=== PATIENT | female | born 1960 | race Caucasian/White ===

== ENCOUNTER 2020-07-15 10:48 | Inpatient (IN) ==
--- NOTE | 2020-07-15 11:05 | DR.SOBA ---
HPI Time Seen Time Seen by Provider: 07/15/20 11:03 Primary Care Physician Primary Care Physician: CATHY CARR HPI Comment HPI Comment: reports started having sob two days ago and developed chest "heaviness" this morning with acute worsening of breathing; believes it's due to new arthritis medicine she's been on for the past week which she threw away and cannot remember the name of; she thinks it has aspirin in it; she tires easily and denies fever, chills, cough, abd pain, n/v/d; no previous lung problems but was hospitalized for renal failure recently and has had "fluid on lungs". Complaints Chief Complaint:: PATIENT CAME TO ER REPORTS BEING SOB ONSET FRIDAY. COVID-19 Coronavirus risk:travel/contact w/high risk person: No Has patient experienced Coronavirus symptoms: Yes Coronavirus symptoms experienced: Shortness of Breath Source History Provided: Patient Mode of Arrival Mode of Arrival: Wheelchair Timing Onset of Chief Complaint: 07/13/20 PMH PMH Past Medical History: Yes Past Medical History: Diabetes and Hyperthyroidism Past Surgical History: Yes Family History History of Family Medical Conditions: Yes Family Medical History: Hypertension Social History Do you use any recreational Drugs:: No Travel Risk Coronavirus risk:travel/contact w/high risk person: No Has patient experienced Coronavirus symptoms: Yes Coronavirus symptoms experienced: Shortness of Breath Infectious screening Have you traveled outside the country in the last 6 months?: No Isolation: Standard ROS Review of Systems Eyes: No Symptoms Reported ENTM: No Symptoms Reported Respiratoy: See HPI Gastrointestinal/Abdominal: No Symptoms Reported Genitourinary: No Symptoms Reported Neurological: No Symptoms Reported Integumentary: No Symptoms Reported Hematologic/Lymphatic: No Symptoms Reported Endocrine: No Symptoms Reported Psychiatric: No Symptoms Reported PE Vital Signs Vitals: Temperature 98.4 F Pulse Rate 89 Respiratory Rate 24 Blood Pressure [Right Arm] 126/64 Blood Pressure 135/72 O2 Sat by Pulse Oximetry 97 General Limitations: No Limitations General Appearance: Alert and In No Apparent Distress Head Head Exam: Normal Inspection Eyes Eye exam: Normal Appearance Neck Neck Exam: Normal Inspection Chest Chest Inspection: Normal Inspection Respiratory Respiratory Exam: Normal Lung Sounds Bilat Respiratory Exam: Bilateral: Clear to Auscultation and Bilateral: Decreased Breath Sounds Cardiovascular Cardiovascular Exam: Normal Rhythm and Tachycardia Abdominal Exam Abdominal Exam: Normal Inspection, Normal Bowel Sounds and Soft Extremities Extremities Exam: Normal Inspection and Edema (2+ bilateral shins) Back Back Exam: Normal Inspection Neurologic Neurological Exam: Alert and Oriented X3 Psychiatric Psychiatric Exam: Normal Affect and Normal Mood Skin Skin Exam: Warm, Dry, Intact and Normal Color MDM Additional Information Obtained Additional Information Obtained From: Old Records Differential Diagnosis Differential Diagnosis: Bronchitis, CHF, COPD, Mycardial Infarction, Pneumonia, Pulmonary embolism, Respiratory Failure and Respiratory Insufficiency COURSE Treatment Treatment: pt has blown several lines; Dr Pate consulted for central line central line placed to rt chest w/o complication Reevaluation 1st: Improved (putting out a lot of urine and has started feeling better) Consultation Call Returned: 15:46 (Dr Oliveros accepts admission) ROR Labs Reviewed Laboratory Results Reviewed?: Yes Result Diagrams: 07/15/20 10:51 07/15/20 10:51 Laboratory: WBC 18.4 X10^3/uL (3.6-10.0) H 07/15/20 10:51 RBC 4.23 X10^6/uL (3.5-5.4) 07/15/20 10:51 Hgb 11.1 g/dL (12.0-16.0) L 07/15/20 10:51 Hct 33.7 % (36.0-47.0) L 07/15/20 10:51 MCV 79.6 fL (80.0-100.0) L 07/15/20 10:51 MCH 26.3 pg (27.0-34.0) L 07/15/20 10:51 MCHC 33.1 g/dL (33.0-35.0) 07/15/20 10:51 RDW 17.1 % (11.6-16.5) H 07/15/20 10:51 Plt Count 182 X10^3/uL (150.0-450.0) 07/15/20 10:51 Plt Count Comment Adequate (ADEQUATE) 07/15/20 10:51 MPV 8.3 fL (7.4-11.0) 07/15/20 10:51 Neut % (Auto) 75.9 % (42.0-75.0) H 07/15/20 10:51 Lymph % (Auto) 15.3 % (21.0-51.0) L 07/15/20 10:51 [place] % (Auto) 6.8 % (0.0-13.0) 07/15/20 10:51 Eos % (Auto) 0.8 % (0.9-2.9) L 07/15/20 10:51 Baso % (Auto) 1.2 % (0.2-1.0) H 07/15/20 10:51 Neut # (Auto) 12.4 x10^3/uL (2.2-4.8) H 07/15/20 10:51 Lymph # (Auto) 2.5 X10^3/uL (1.3-2.9) 07/15/20 10:51 [place] # (Auto) 1.1 x10^3/uL (0.3-0.8) H 07/15/20 10:51 Eos # (Auto) 0.1 x10^3/uL (0.0-0.2) 07/15/20 10:51 Baso # (Auto) 0.2 X10^3/uL (0.0-0.1) H 07/15/20 10:51 Absolute Nucleated RBC 0.1 /100WBC 07/15/20 10:51 Plt Morphology Comment Normal (NORMAL) 07/15/20 10:51 RBC Morphology Abnormal (NORMAL) A 07/15/20 10:51 Hypochromasia Slight A 07/15/20 10:51 Anisocytosis Slight A 07/15/20 10:51 Microcytosis Slight A 07/15/20 10:51 Sample Site Rra 07/15/20 11:06 ABG pH 7.330 (7.35-7.45) L 07/15/20 11:06 ABG pCO2 67.0 mmHg (35.0-45.0) H* 07/15/20 11:06 ABG pO2 64.0 mmHg (80.0-100.0) L 07/15/20 11:06 ABG HCO3 35.3 mmol/L (22-26) H* 07/15/20 11:06 ABG O2 Saturation 90.0 % (90-100) 07/15/20 11:06 ABG Base Excess 7.2 mmol/L (-2.0-2.0) H 07/15/20 11:06 Escobar Test Pos 07/15/20 11:06 A-a Gradient 109.0 mmHg 07/15/20 11:06 FiO2 36.0 07/15/20 11:06 Blood Gas Comments Pt joyce well eb 07/15/20 11:06 Sodium 143 mmol/L (136-145) 07/15/20 10:51 Corrected Sodium 145 mmol/L (136-145) 07/15/20 10:51 Potassium 4.7 mmol/L (3.5-5.1) 07/15/20 10:51 Chloride 104 mmol/L (98-107) 07/15/20 10:51 Carbon Dioxide 32.3 mmol/L (21-32) H 07/15/20 10:51 BUN 27 mg/dL (7-18) H 07/15/20 10:51 Creatinine 1.87 mg/dL (0.55-1.02) H 07/15/20 10:51 Est GFR (MDRD) Af Amer 35 (>60) L 07/15/20 10:51 Est GFR (MDRD) Non-Af 29 (>60) L 07/15/20 10:51 Glucose 180 mg/dL (65-99) H 07/15/20 10:51 Lactic Acid 1.0 mmol/L (0.4-2.0) 07/15/20 13:30 Calcium 9.6 mg/dL (8.5-10.1) 07/15/20 10:51 Corrected Calcium 10.2 mg/dL (8.5-10.1) H 07/15/20 10:51 Total Bilirubin 0.40 mg/dL (0.2-1.0) 07/15/20 10:51 AST 56 Units/L (15-37) H 07/15/20 10:51 ALT 50 Units/L (12-78) 07/15/20 10:51 Alkaline Phosphatase 161 Units/L (46-116) H 07/15/20 10:51 Creatine Kinase 97 Units/L (26-192) 07/15/20 10:51 CK-MB (CK-2) 1.6 ng/mL (0-4.0) 07/15/20 10:51 CK/CKMB % Calc 1.7 % (<4) 07/15/20 10:51 Troponin I < 0.02 ng/mL (0-1.5) 07/15/20 10:51 B-Natriuretic Peptide 103 pg/mL (0-79) H 07/15/20 10:51 Total Protein 7.8 g/dL (6.4-8.2) 07/15/20 10:51 Albumin 3.2 g/dL (3.4-5.0) L 07/15/20 10:51 Globulin 4.6 g/dL (2.5-4.5) H 07/15/20 10:51 Albumin/Globulin Ratio 0.7 Ratio (1.1-2.1) L 07/15/20 10:51 SARS CoV-2 RNA Rapid DEVONTE Negative (NEGATIVE) 07/15/20 15:00 XRAY XRAY Interpreted by: Radiologist X-ray Results: pcxr: Cardiomegaly with vascular congestion and bilateral interstitial disease. The findings may represent CHF with edema, or pneumonia. Some element of underlying chronic interstitial process may be present; comparison with prior imaging, not currently available, would be helpful to distinguish. Follow-up suggested. chest ct: Mild cardiomegaly. Mild interstitial and ground-glass opacities can be seen with pulmonary edema and atypical pneumonia. Small pleural effusions. Enlarged left thyroid with narrowing and deviation of the trachea at the thoracic inlet. Recommend thyroid sonogram. Opioid Opioid Risk Tool Age (Jovanni box if 16-45): No History of Preadolescent Sexual Abuse: No Total: 0 Total Score Risk Category: Low Risk Copyright: Yann VALENTINE predicting aberrant behaviors Diagnosis Discharge Problem: Atypical pneumonia, Thyroid enlargement, Tracheal deviation, Acute respiratory acidosis, Mild congestive heart failure, Hypoxia Sepsis Qualifiers: Sepsis type: sepsis due to unspecified organism Sepsis acute organ dysfunction status: with acute organ dysfunction Severe sepsis acute organ dysfunction type: acute respiratory failure Acute respiratory failure type: with hypoxia Severe sepsis shock status: without septic shock Qualified Code(s): A41.9 - Sepsis, unspecified organism Renal failure (ARF), acute on chronic Qualifiers: Acute renal failure type: unspecified Chronic kidney disease stage: stage 4 (severe) Qualified Code(s): N17.9 - Acute kidney failure, unspecified Instructions Forms: Precautions for COVID19 Patient Portal Social Distancing
[2020-07-15] MEDS ORDERED: APRESOLINE INJ 20 MG VIAL IVP ONE (11:06)
[2020-07-15 11:09] LABS: ABG BASE EXCESS 7.2 mmol/L (-2.0-2.0)
[2020-07-15 11:10] LABS: ABG ALLEN TEST POS; ABG HCO3 35.3 mmol/L (22-26)
[2020-07-15] MEDS ORDERED: APRESOLINE INJ 20 MG VIAL ONE (11:11)
[2020-07-15 11:17] LABS: BASOPHILS # (AUTO) 0.2 X10^3/uL (0.0-0.1); EOSINOPHILS # (AUTO) 0.1 x10^3/uL (0.0-0.2); MONOCYTES # (AUTO) 1.1 x10^3/uL (0.3-0.8); MONOCYTES % (AUTO) 6.8 % (0.0-13.0); RED CELL DISTRIBUTION WIDTH 17.1 % (11.6-16.5)
[2020-07-15 11:19] LABS: BASOPHILS % (AUTO) 1.2 % (0.2-1.0); EOSINOPHILS % (AUTO) 0.8 % (0.9-2.9); HEMATOCRIT 33.7 % (36.0-47.0); HEMOGLOBIN 11.1 g/dL (12.0-16.0); LYMPHOCYTES # (AUTO) 2.5 X10^3/uL (1.3-2.9); LYMPHOCYTES % (AUTO) 15.3 % (21.0-51.0); MEAN CORPUSCULAR HEMOGLOBIN 26.3 pg (27.0-34.0); MEAN CORPUSCULAR HGB CONC 33.1 g/dL (33.0-35.0); MEAN CORPUSCULAR VOLUME 79.6 fL (80.0-100.0); MEAN PLATELET VOLUME 8.3 fL (7.4-11.0); NEUTROPHILS # (AUTO) 12.4 x10^3/uL (2.2-4.8); NEUTROPHILS % (AUTO) 75.9 % (42.0-75.0); PLATELET COUNT 182 X10^3/uL (150.0-450.0); RED BLOOD COUNT 4.23 X10^6/uL (3.5-5.4)
--- NOTE | 2020-07-15 11:20 | RAD ---
HISTORYSOBSTUDYAP chestCOMPARISONNoneFINDINGSThe heart is enlarged. There is pulmonary vascular congestion with a bilateral interstitial process throughout the lungs. No mass formation, pleural fluid or pneumothorax seen.IMPRESSIONCardiomegaly with vascular congestion and bilateral interstitial disease. The findings may represent CHF with edema, or pneumonia. Some element of underlying chronic interstitial process may be present; comparison with prior imaging, not currently available, would be helpful to distinguish. Follow-up suggested.Electronically signed by: WOODY ASHBY (July 15, 2020 11:18:38)
[2020-07-15 11:30] LABS: ALANINE AMINOTRANSFERASE 50 Units/L (12-78); ALBUMIN 3.2 g/dL (3.4-5.0); ALKALINE PHOSPHATASE 161 Units/L (46-116); ASPARTATE AMINO TRANSFERASE 56 Units/L (15-37); BLOOD UREA NITROGEN 27 mg/dL (7-18); CALCIUM 9.6 mg/dL (8.5-10.1); CARBON DIOXIDE 32.3 mmol/L (21-32); CHLORIDE 104 mmol/L (98-107); CKMB % 1.7 % (<4); COR CA(FOR HYPOALB) 10.2 mg/dL (8.5-10.1); COR NA(FOR HYPERGLY) 145 mmol/L (136-145); CREATINE KINASE 97 Units/L (26-192); CREATINE KINASE MB 1.6 ng/mL (0-4.0); CREATININE 1.87 mg/dL (0.55-1.02); SODIUM 143 mmol/L (136-145); TOTAL PROTEIN 7.8 g/dL (6.4-8.2); TROPONIN I < 0.02 ng/mL (0-1.5); WHITE BLOOD COUNT 18.4 X10^3/uL (3.6-10.0); eGFR NON BLACK RACES 29 (>60)
[2020-07-15 11:31] LABS: PLATELET MORPHOLOGY COMMENT NORMAL (NORMAL)
[2020-07-15 11:32] LABS: ANISOCYTOSIS SLIGHT; HYPOCHROMASIA SLIGHT; MICROCYTOSIS SLIGHT
[2020-07-15] MEDS ORDERED: LASIX IVP STA (12:14)
[2020-07-15] MEDS ORDERED: LASIX ONE (12:55)
[2020-07-15] MEDS ORDERED: LASIX IVP ONE (12:55)
--- NOTE | 2020-07-15 13:06 | CT ---
HISTORYSOB, CHF, HYPOXIA, ABNORMAL CXRSTUDYCHEST W/O CONCOMPARISONSame day chest radiograph.TECHNIQUEMultiple axial images of the abdomen and pelvis were obtained from the lung bases to the pubic symphysis without the administration of IV contrast. Dose reduction techniques including Automated Exposure Control (AEC) and adjustment of mA and kV were utilized.FINDINGSThe left thyroid gland is enlarged with mild substernal extension. Mildly atherosclerotic normal caliber thoracic aorta. Normal caliber central pulmonary artery. The heart is mildly enlarged with trace pericardial fluid. No discernible pathologic adenopathy in the thorax. Visualized upper abdomen has a benign noncontrast appearance. No acute osseous abnormality. The trachea is narrowed at the enlarged thyroid but otherwise appears patent. Mainstem bronchi appear patent. There are mild scattered bilateral interstitial and ground-glass opacities. Small pleural effusions are present.IMPRESSIONMild cardiomegaly. Mild interstitial and ground-glass opacities can be seen with pulmonary edema and atypical pneumonia. Small pleural effusions.Enlarged left thyroid with narrowing and deviation of the trachea at the thoracic inlet. Recommend thyroid sonogram.Electronically signed by: Raymundo Horvath (July 15, 2020 13:03:41)
[2020-07-15] MEDS ORDERED: HumuLIN R SUBCUT PRN (15:59)
[2020-07-15] MEDS ORDERED: XYLOCAINE 1 % (PLAIN) ONE (16:00)
[2020-07-15] MEDS ORDERED: ZOSYN VIAL 3.375 GRAMS 3.375 G in NS 100 ML IV + SPIKE MINIBAG* 100 ML IV ONE (16:00)
[2020-07-15] MEDS ORDERED: NS 250 ML IV 250 ML IV ONE (16:32)
[2020-07-15] MEDS ORDERED: ZITHROMAX INJ 500 MG VIAL IV ONE (16:32)
--- NOTE | 2020-07-15 16:34 | RAD ---
HISTORYLine placementSTUDYAP [id number]/2021, 11 a.m.FINDINGSThere is no significant change in appearance of heart or lungs since earlier today. There is a new right subclavian line present, terminating at or near the superior cavoatrial junction. No pneumothorax or complicating pleural fluid.IMPRESSIONStable chest. Interval CVL.Electronically signed by: WOODY ASHBY (July 15, 2020 16:33:02)
[2020-07-15] MEDS: ZITHROMAX INJ 500 MG VIAL 500 MG in NS 250 ML IV 250 ML IV SCH (16:40)
[2020-07-15] MEDS ORDERED: NS 100 ML IV 100 ML IV ONE (17:19)
[2020-07-15] MEDS ORDERED: DUONEB 0.5 MG/3 MG (3 mL) NEB PRN (17:54)
[2020-07-15] MEDS ORDERED: BACTROBAN TOPICAL OINT TOP PRN (21:21)
[2020-07-15] MEDS: NEURONTIN CAP 400 MG PO SCH (22:39)
[2020-07-15] MEDS: XANAX PO PRN (22:39)
[2020-07-16] MEDS: ZOSYN VIAL 3.375 GRAMS 3.375 G in NS 100 ML IV + SPIKE MINIBAG* 100 ML IV SCH ×4 (00:57→21:12)
[2020-07-16 06:09] LABS: BASOPHILS # (AUTO) 0.1 X10^3/uL (0.0-0.1); BASOPHILS % (AUTO) 0.8 % (0.2-1.0); EOSINOPHILS # (AUTO) 0.1 x10^3/uL (0.0-0.2); EOSINOPHILS % (AUTO) 0.7 % (0.9-2.9); HEMATOCRIT 30.3 % (36.0-47.0); HEMOGLOBIN 9.8 g/dL (12.0-16.0); LYMPHOCYTES # (AUTO) 1.2 X10^3/uL (1.3-2.9); LYMPHOCYTES % (AUTO) 11.3 % (21.0-51.0); MEAN CORPUSCULAR HEMOGLOBIN 25.9 pg (27.0-34.0); MEAN CORPUSCULAR HGB CONC 32.3 g/dL (33.0-35.0); MEAN CORPUSCULAR VOLUME 80.3 fL (80.0-100.0); MONOCYTES # (AUTO) 0.7 x10^3/uL (0.3-0.8); MONOCYTES % (AUTO) 6.6 % (0.0-13.0); NEUTROPHILS # (AUTO) 8.4 x10^3/uL (2.2-4.8); NEUTROPHILS % (AUTO) 80.6 % (42.0-75.0); PLATELET COUNT 180 X10^3/uL (150.0-450.0); RED BLOOD COUNT 3.77 X10^6/uL (3.5-5.4); RED CELL DISTRIBUTION WIDTH 16.9 % (11.6-16.5); WHITE BLOOD COUNT 10.5 X10^3/uL (3.6-10.0)
[2020-07-16 06:22] LABS: ALBUMIN 2.7 g/dL (3.4-5.0); CALCIUM 9.1 mg/dL (8.5-10.1); CARBON DIOXIDE 34.7 mmol/L (21-32); COR CA(FOR HYPOALB) 10.1 mg/dL (8.5-10.1); CREATININE 1.87 mg/dL (0.55-1.02); TOTAL PROTEIN 6.8 g/dL (6.4-8.2)
[2020-07-16] MEDS: BENTYL CAP 10 MG PO SCH ×3 (06:26→17:40)
[2020-07-16] MEDS: NEURONTIN CAP 400 MG PO SCH ×3 (06:26→21:12)
[2020-07-16] MEDS: NORVASC TAB 10 MG PO SCH (08:16)
[2020-07-16] MEDS: ZESTORETIC 10/ 12.5MG PO SCH (08:17)
[2020-07-16] MEDS: PROzac PO SCH (08:17)
[2020-07-16 10:59] VITALS: BMI 43.5
--- NOTE | 2020-07-16 11:17 | DR.H&P ---
H&P History & Physical for Day of: H&P Date: 07/16/20 Chief Complaint Chief Complaint: Shortness of breath Weakness Allergies Allergies Allergy/AdvReac Type Severity Reaction Status Date / Time aspirin Allergy Verified 03/17/20 18:05 History of Present Illness History of Present Illness: Pt is a 60 year old female past medical history of HTN, DMT2, CKD, presenting with shortness of breath and generalized weakness since . Pt states that she woke up in the morning and was having difficulty breathing. Denies fevers, chills, chest pain, diaphoresis. Lab s/imaging: Wbc 10.5, Hgb 9.8, Plt 180, Na 144, K 4.6, Creatinine 1.87, Glucose 134, ABG: PH 7.33, PC02 67, P02 64, HC03 35, 02 SAT 90%, FI02 36%. Troponin negative, BNP 103, UA negative, COVID-19 negative, Blood cultures pending, CXR: Cardiomegaly with vascular congestion and bilateral interstitial disease. The findings may represent CHF with edema, or pneumonia. CT chest: Mild cardiomegaly. Mild interstitial and ground-glass opacities can be seen with pulmonary edema and atypical pneumonia. Small pleural effusions. Enlarged left thyroid with narrowing and deviation of the trachea at the thoracic inlet. Recommend thyroid sonogram. Pt was given IV Lasix 60mg in ED resulting in good urine output and improvement in breathing. She is currently requiring 3L nasal cannula. Will get Echo to evaluate cardiac function with elevated BNP on labs. Pt with leukocytosis and findings on CT suggestive also of pneumonia, pt is on IV antibiotics Azithromycin and Zosyn. Continue bronchodilators. Wean O2 as tolerated. Restart home medications. Will order U/S of thyroid due to enlargement. Pt also had elevated kappa light chains on UA, which will need further workup outpatient, peripheral smear ordered for pathology review. Order Thyroid levels and A1c. Will continue to monitor and follow up labs/imaging in the morning. Time spent on clinical assessment, reviewing labs and imaging, decision making, and documentation greater than 45 minutes. Past Medical History Past Medical History: Diabetes and Hyperthyroidism Past Surgical History Surgical History: Ortho Surgery Family History Family Medical History: Diabetes Mellitus, Cancer, [place], Heart Failure and Hypertension Social History Does patient currently use any type of tobacco product: No Have you used tobacco products in the last 12 months: No Type of Tobacco Use: None Does any household member use tobacco: No Alcohol Use: None Drug Use: None Medications Home Medications: aspirin Allergy (Verified 03/17/20 18:05) CONTINUE taking the following medications acetaminophen-codeine [Tylenol-Codeine #3] 1 tab PO TID PRN 07/15/20 [History] alprazolam [Xanax] 0.25 mg PO BID PRN 07/15/20 [History] amlodipine 10 mg PO DAILY 07/15/20 [History] furosemide [Lasix] 60 mg PO QAM 07/15/20 [History] gabapentin 1,600 mg PO TID 07/15/20 [History] mupirocin 1 applic TOPICAL BID 07/15/20 [History] Labs Result Diagrams: 07/16/20 05:25 07/16/20 05:25 Labs: Laboratory WBC 10.5 X10^3/uL (3.6-10.0) H 07/16/20 05:25 RBC 3.77 X10^6/uL (3.5-5.4) 07/16/20 05:25 Hgb 9.8 g/dL (12.0-16.0) L 07/16/20 05:25 Hct 30.3 % (36.0-47.0) L 07/16/20 05:25 MCV 80.3 fL (80.0-100.0) 07/16/20 05:25 MCH 25.9 pg (27.0-34.0) L 07/16/20 05:25 MCHC 32.3 g/dL (33.0-35.0) L 07/16/20 05:25 RDW 16.9 % (11.6-16.5) H 07/16/20 05:25 Plt Count 180 X10^3/uL (150.0-450.0) 07/16/20 05:25 Plt Count Comment Adequate (ADEQUATE) 07/15/20 10:51 MPV 8.0 fL (7.4-11.0) 07/16/20 05:25 Neut % (Auto) 80.6 % (42.0-75.0) H 07/16/20 05:25 Lymph % (Auto) 11.3 % (21.0-51.0) L 07/16/20 05:25 [place] % (Auto) 6.6 % (0.0-13.0) 07/16/20 05:25 Eos % (Auto) 0.7 % (0.9-2.9) L 07/16/20 05:25 Baso % (Auto) 0.8 % (0.2-1.0) 07/16/20 05:25 Neut # (Auto) 8.4 x10^3/uL (2.2-4.8) H 07/16/20 05:25 Lymph # (Auto) 1.2 X10^3/uL (1.3-2.9) L 07/16/20 05:25 [place] # (Auto) 0.7 x10^3/uL (0.3-0.8) 07/16/20 05:25 Eos # (Auto) 0.1 x10^3/uL (0.0-0.2) 07/16/20 05:25 Baso # (Auto) 0.1 X10^3/uL (0.0-0.1) 07/16/20 05:25 Absolute Nucleated RBC 0.1 /100WBC 07/16/20 05:25 Plt Morphology Comment Normal (NORMAL) 07/15/20 10:51 RBC Morphology Abnormal (NORMAL) A 07/15/20 10:51 Hypochromasia Slight A 07/15/20 10:51 Anisocytosis Slight A 07/15/20 10:51 Microcytosis Slight A 07/15/20 10:51 Sample Site Rra 07/15/20 11:06 ABG pH 7.330 (7.35-7.45) L 07/15/20 11:06 ABG pCO2 67.0 mmHg (35.0-45.0) H* 07/15/20 11:06 ABG pO2 64.0 mmHg (80.0-100.0) L 07/15/20 11:06 ABG HCO3 35.3 mmol/L (22-26) H* 07/15/20 11:06 ABG O2 Saturation 90.0 % (90-100) 07/15/20 11:06 ABG Base Excess 7.2 mmol/L (-2.0-2.0) H 07/15/20 11:06 Escobar Test Pos 07/15/20 11:06 A-a Gradient 109.0 mmHg 07/15/20 11:06 FiO2 36.0 07/15/20 11:06 Blood Gas Comments Pt joyce well eb 07/15/20 11:06 Sodium 144 mmol/L (136-145) 07/16/20 05:25 Corrected Sodium 145 mmol/L (136-145) 07/16/20 05:25 Potassium 4.6 mmol/L (3.5-5.1) 07/16/20 05:25 Chloride 103 mmol/L (98-107) 07/16/20 05:25 Carbon Dioxide 34.7 mmol/L (21-32) H 07/16/20 05:25 BUN 25 mg/dL (7-18) H 07/16/20 05:25 Creatinine 1.87 mg/dL (0.55-1.02) H 07/16/20 05:25 Est GFR (MDRD) Af Amer 35 (>60) L 07/16/20 05:25 Est GFR (MDRD) Non-Af 29 (>60) L 07/16/20 05:25 Glucose 134 mg/dL (65-99) H 07/16/20 05:25 POC Glucose (mg/dL) 139 mg/dL (65-99) H 07/15/20 20:24 Lactic Acid 1.0 mmol/L (0.4-2.0) 07/15/20 13:30 Calcium 9.1 mg/dL (8.5-10.1) 07/16/20 05:25 Corrected Calcium 10.1 mg/dL (8.5-10.1) 07/16/20 05:25 Total Bilirubin 0.50 mg/dL (0.2-1.0) 07/16/20 05:25 AST 37 Units/L (15-37) 07/16/20 05:25 ALT 42 Units/L (12-78) 07/16/20 05:25 Alkaline Phosphatase 127 Units/L (46-116) H 07/16/20 05:25 Creatine Kinase 97 Units/L (26-192) 07/15/20 10:51 CK-MB (CK-2) 1.6 ng/mL (0-4.0) 07/15/20 10:51 CK/CKMB % Calc 1.7 % (<4) 07/15/20 10:51 Troponin I < 0.02 ng/mL (0-1.5) 07/15/20 10:51 B-Natriuretic Peptide 103 pg/mL (0-79) H 07/15/20 10:51 Total Protein 6.8 g/dL (6.4-8.2) 07/16/20 05:25 Albumin 2.7 g/dL (3.4-5.0) L 07/16/20 05:25 Globulin 4.1 g/dL (2.5-4.5) 07/16/20 05:25 Albumin/Globulin Ratio 0.7 Ratio (1.1-2.1) L 07/16/20 05:25 SARS CoV-2 RNA Rapid DEVONTE Negative (NEGATIVE) 07/15/20 15:00 Review of Systems Constitutional: Weakness; denies Fever and Chills Eyes: No Symptoms Reported ENT: No Symptoms Reported Respiratory: Shortness of Breath Cardiovascular: No Symptoms Reported Gastrointestinal: No Symptoms Reported Genitourinary: No Symptoms Reported Musculoskeletal: No Symptoms Reported Skin: No Symptoms Reported Neurological: No Symptoms Reported Physical Exam Vital Signs: Temperature 98.1 F Pulse Rate [Left Radial] 86 Pulse Rate 84 Respiratory Rate 30 Blood Pressure [Right Arm] 174/80 Blood Pressure 173/76 O2 Sat by Pulse Oximetry 100 Oriented: Normal Eyes: Normal Ear: Normal Nose: Normal Throat: Normal Respiratory: Diminished Throughout Cardiovascular: Normal : Normal Auscultation: Bowel Sounds: Normal Palpation: Normal Tenderness: Normal Skin: Normal Musculoskeletal: Normal Psychiatric: Normal Mood Description: Calm and Appropriate Affect: Normal Speech Pattern: Clear and Appropriate Assessment/Plan (1) Atypical pneumonia: Status: Acute (2) Mild congestive heart failure: Status: Acute (3) Hypoxia: Status: Acute (4) Thyroid enlargement: Status: Acute (5) Renal failure (ARF), acute on chronic: Qualifiers: Acute renal failure type: unspecified Chronic kidney disease stage: stage 4 (severe) Qualified Code(s): N17.9 - Acute kidney failure, unspecified; N18.4 - Chronic kidney disease, stage 4 (severe) Status: Acute Review H&P Reviewed: Yes Patient was examined?: Yes
[2020-07-16 11:33] LABS: HEMOGLOBIN A1C 6.3 %
[2020-07-16 11:42] LABS: FREE T4 (FREE THYROXINE) 1.01 ng/dL (0.76-1.46); TSH (3RD GENERATION) 0.807 uIU/mL (0.358-3.74)
[2020-07-16] MEDS: ZITHROMAX INJ 500 MG VIAL 500 MG in NS 250 ML IV 250 ML IV SCH (13:25)
[2020-07-16] MEDS: TYLENOL #3 TAB (W/CODEINE) PO PRN (13:26)
[2020-07-17] MEDS ORDERED: NS 250 ML IV 250 ML IV ONE (01:04)
[2020-07-17 05:16] LABS: BASOPHILS # (AUTO) 0.1 X10^3/uL (0.0-0.1); BASOPHILS % (AUTO) 0.8 % (0.2-1.0); EOSINOPHILS # (AUTO) 0.1 x10^3/uL (0.0-0.2); EOSINOPHILS % (AUTO) 1.1 % (0.9-2.9); HEMATOCRIT 30.5 % (36.0-47.0); HEMOGLOBIN 9.7 g/dL (12.0-16.0); LYMPHOCYTES # (AUTO) 1.8 X10^3/uL (1.3-2.9); LYMPHOCYTES % (AUTO) 17.2 % (21.0-51.0); MEAN CORPUSCULAR VOLUME 81.3 fL (80.0-100.0); MEAN PLATELET VOLUME 8.2 fL (7.4-11.0); MONOCYTES # (AUTO) 0.7 x10^3/uL (0.3-0.8); MONOCYTES % (AUTO) 6.7 % (0.0-13.0); NEUTROPHILS # (AUTO) 7.8 x10^3/uL (2.2-4.8); NEUTROPHILS % (AUTO) 74.2 % (42.0-75.0); PLATELET COUNT 201 X10^3/uL (150.0-450.0); RED BLOOD COUNT 3.75 X10^6/uL (3.5-5.4); WHITE BLOOD COUNT 10.5 X10^3/uL (3.6-10.0)
[2020-07-17 05:24] LABS: ALBUMIN 2.7 g/dL (3.4-5.0); CALCIUM 8.9 mg/dL (8.5-10.1); CARBON DIOXIDE 33.4 mmol/L (21-32); COR CA(FOR HYPOALB) 9.9 mg/dL (8.5-10.1); CREATININE 1.7 mg/dL (0.55-1.02)
[2020-07-17] MEDS: NEURONTIN CAP 400 MG PO SCH ×3 (06:23→21:51)
[2020-07-17] MEDS: BENTYL CAP 10 MG PO SCH ×3 (06:24→16:28)
[2020-07-17] MEDS: ZOSYN VIAL 3.375 GRAMS 3.375 G in NS 100 ML IV + SPIKE MINIBAG* 100 ML IV SCH ×3 (06:24→21:52)
--- NOTE | 2020-07-17 07:18 | RAD ---
HISTORYPNEUMONIASTUDYCHEST, 1 [id number]/2021FINDINGSThe trachea is midline. Is right central line with tip in distal SVC unchanged. The cardiac silhouette is slightly enlarged.. Bilateral interstitial disease unchanged. Suspect small left pleural effusion.. The bony thorax is unremarkable.IMPRESSIONBilateral interstitial disease, unchanged.Suspect small left pleural effusion. TheElectronically signed by: Jose Miguel Starr (July 17, 2020 07:16:51)
[2020-07-17] MEDS: PROzac PO SCH (09:39)
[2020-07-17] MEDS: NORVASC TAB 10 MG PO SCH (09:39)
[2020-07-17] MEDS: ZESTORETIC 10/ 12.5MG PO SCH (09:39)
[2020-07-17] MEDS: LOVENOX INJ 40 MG SYR SC SCH (09:40)
--- NOTE | 2020-07-17 10:42 | PCM.PROG ---
Progress Note Progress Note for Day of Date of Exam: 07/17/20 Subjective Subjective: Pt is a 60 year old female past medical history of HTN, DMT2, CKD, admitted for CHF exacerbation and community acquired pneumonia. This morning she reports some improvement in her breathing. She does admit to having a chronic history of shortness of breath and smoking history. She is also aware of chronic kidney disease as her pcp has referred her to nephrology. She will need evaluation for home oxygen, pulmonary rehabilitation, and referral outpatient to cardiology for further evaluation. Labs/imaging: Wbc 10.5, Hgb 9.7, Plt 201, Na 142, K 4.4, Creatinine 1.70, Glucose 128, Blood cultures pending, CXR: Bilateral interstitial disease, unchanged. Suspect small left pleural effusion. Will order IV Lasix 40mg x 1. Pt is currently requiring 3L nasal cannula. Will get Echo to evaluate cardiac function with elevated BNP on labs. Continue IV antibiotics Azithromycin and Zosyn. Continue bronchodilators. Wean O2 as tolerated. U/S of thyroid ordered due to enlargement. Pt also had elevated kappa light chains on UA, which will need further workup outpatient, peripheral smear ordered for pathology review. Thyroid levels within normal limits, A1c 6.3. Will continue to monitor and follow up labs/imaging in the morning. Past Medical Family Social History Past Med/Fam/Surg Hx: No changes since H&P Allergies: Allergies aspirin Allergy (Verified 03/17/20 18:05) Review of Systems ROS: No change since H&P Vital Signs and I&O's Vital Signs: Temperature 98.0 F Pulse Rate [Left Radial] 86 Pulse Rate 81 Respiratory Rate 25 Blood Pressure [Right Arm] 174/80 Blood Pressure 133/63 O2 Sat by Pulse Oximetry 95 Intake and Output: Intake & Output 07/14/20 07/15/20 07/16/20 07/17/20 23:59 23:59 23:59 23:59 Intake Total 1530 / 1530 2030 330 / 330 Output Total 1100 / 1100 Balance 430 / 430 2030 330 / 330 Physical Exam Oriented: Normal Eyes: Normal Ear: Normal Nose: Normal Throat: Normal Respiratory: Diminished Cardiovascular: Normal : Normal Auscultation: Bowel Sounds: Normal Tenderness: Normal Skin: Normal Musculoskeletal: Normal Psychiatric: Normal Mood Description: Calm and Appropriate Affect: Normal Speech Pattern: Clear and Appropriate Laboratory and Diagnostics Result Diagrams: 07/17/20 04:15 07/17/20 04:15 Labs: 07/15/20 13:37 Blood Blood Culture - Preliminary 07/15/20 13:30 Blood Blood Culture - Preliminary Laboratory WBC 10.5 X10^3/uL (3.6-10.0) H 07/17/20 04:15 RBC 3.75 X10^6/uL (3.5-5.4) 07/17/20 04:15 Hgb 9.7 g/dL (12.0-16.0) L 07/17/20 04:15 Hct 30.5 % (36.0-47.0) L 07/17/20 04:15 MCV 81.3 fL (80.0-100.0) 07/17/20 04:15 MCH 26.0 pg (27.0-34.0) L 07/17/20 04:15 MCHC 32.0 g/dL (33.0-35.0) L 07/17/20 04:15 RDW 17.0 % (11.6-16.5) H 07/17/20 04:15 Plt Count 201 X10^3/uL (150.0-450.0) 07/17/20 04:15 Plt Count Comment Adequate (ADEQUATE) 07/15/20 10:51 MPV 8.2 fL (7.4-11.0) 07/17/20 04:15 Neut % (Auto) 74.2 % (42.0-75.0) 07/17/20 04:15 Lymph % (Auto) 17.2 % (21.0-51.0) L 07/17/20 04:15 Wake % (Auto) 6.7 % (0.0-13.0) 07/17/20 04:15 Eos % (Auto) 1.1 % (0.9-2.9) 07/17/20 04:15 Baso % (Auto) 0.8 % (0.2-1.0) 07/17/20 04:15 Neut # (Auto) 7.8 x10^3/uL (2.2-4.8) H 07/17/20 04:15 Lymph # (Auto) 1.8 X10^3/uL (1.3-2.9) 07/17/20 04:15 Wake # (Auto) 0.7 x10^3/uL (0.3-0.8) 07/17/20 04:15 Eos # (Auto) 0.1 x10^3/uL (0.0-0.2) 07/17/20 04:15 Baso # (Auto) 0.1 X10^3/uL (0.0-0.1) 07/17/20 04:15 Absolute Nucleated RBC 0.1 /100WBC 07/17/20 04:15 Plt Morphology Comment Normal (NORMAL) 07/15/20 10:51 RBC Morphology Abnormal (NORMAL) A 07/15/20 10:51 Hypochromasia Slight A 07/15/20 10:51 Anisocytosis Slight A 07/15/20 10:51 Microcytosis Slight A 07/15/20 10:51 Sample Site Rra 07/15/20 11:06 ABG pH 7.330 (7.35-7.45) L 07/15/20 11:06 ABG pCO2 67.0 mmHg (35.0-45.0) H* 07/15/20 11:06 ABG pO2 64.0 mmHg (80.0-100.0) L 07/15/20 11:06 ABG HCO3 35.3 mmol/L (22-26) H* 07/15/20 11:06 ABG O2 Saturation 90.0 % (90-100) 07/15/20 11:06 ABG Base Excess 7.2 mmol/L (-2.0-2.0) H 07/15/20 11:06 Escobar Test Pos 07/15/20 11:06 A-a Gradient 109.0 mmHg 07/15/20 11:06 FiO2 36.0 07/15/20 11:06 Blood Gas Comments Pt joyce well eb 07/15/20 11:06 Sodium 142 mmol/L (136-145) 07/17/20 04:15 Corrected Sodium 143 mmol/L (136-145) 07/17/20 04:15 Potassium 4.4 mmol/L (3.5-5.1) 07/17/20 04:15 Chloride 103 mmol/L (98-107) 07/17/20 04:15 Carbon Dioxide 33.4 mmol/L (21-32) H 07/17/20 04:15 BUN 26 mg/dL (7-18) H 07/17/20 04:15 Creatinine 1.70 mg/dL (0.55-1.02) H 07/17/20 04:15 Est GFR (MDRD) Af Amer 39 (>60) L 07/17/20 04:15 Est GFR (MDRD) Non-Af 32 (>60) L 07/17/20 04:15 Glucose 128 mg/dL (65-99) H 07/17/20 04:15 POC Glucose (mg/dL) 121 mg/dL (65-99) H 07/16/20 20:23 Hemoglobin A1c 6.3 % 07/16/20 05:25 Lactic Acid 1.0 mmol/L (0.4-2.0) 07/15/20 13:30 Calcium 8.9 mg/dL (8.5-10.1) 07/17/20 04:15 Corrected Calcium 9.9 mg/dL (8.5-10.1) 07/17/20 04:15 Total Bilirubin 0.50 mg/dL (0.2-1.0) 07/17/20 04:15 AST 32 Units/L (15-37) 07/17/20 04:15 ALT 33 Units/L (12-78) 07/17/20 04:15 Alkaline Phosphatase 128 Units/L (46-116) H 07/17/20 04:15 Creatine Kinase 97 Units/L (26-192) 07/15/20 10:51 CK-MB (CK-2) 1.6 ng/mL (0-4.0) 07/15/20 10:51 CK/CKMB % Calc 1.7 % (<4) 07/15/20 10:51 Troponin I < 0.02 ng/mL (0-1.5) 07/15/20 10:51 B-Natriuretic Peptide 103 pg/mL (0-79) H 07/15/20 10:51 Total Protein 7.0 g/dL (6.4-8.2) 07/17/20 04:15 Albumin 2.7 g/dL (3.4-5.0) L 07/17/20 04:15 Globulin 4.3 g/dL (2.5-4.5) 07/17/20 04:15 Albumin/Globulin Ratio 0.6 Ratio (1.1-2.1) L 07/17/20 04:15 Free T4 1.01 ng/dL (0.76-1.46) 07/16/20 05:25 TSH 3rd Generation 0.807 uIU/mL (0.358-3.74) 07/16/20 05:25 SARS CoV-2 RNA Rapid DEVONTE Negative (NEGATIVE) 07/15/20 15:00 Plan (1) Atypical pneumonia: Status: Acute (2) Mild congestive heart failure: Status: Acute (3) Hypoxia: Status: Acute (4) Thyroid enlargement: Status: Acute (5) Renal failure (ARF), acute on chronic: Status: Acute Qualifiers: Acute renal failure type: unspecified Chronic kidney disease stage: stage 4 (severe) Qualified Code(s): N17.9 - Acute kidney failure, unspecified; N18.4 - Chronic kidney disease, stage 4 (severe)
[2020-07-17] MEDS ORDERED: LASIX IVP ONE (11:10)
[2020-07-17] MEDS ORDERED: ZITHROMAX INJ 500 MG VIAL IV ONE (13:43)
[2020-07-17] MEDS: ZITHROMAX INJ 500 MG VIAL 500 MG in NS 250 ML IV 250 ML IV SCH ×2 (13:56→13:57)
[2020-07-17] MEDS: TYLENOL #3 TAB (W/CODEINE) PO PRN (13:58)
[2020-07-17] MEDS: XANAX PO PRN (21:51)
[2020-07-18] MEDS: ZOSYN VIAL 3.375 GRAMS 3.375 G in NS 100 ML IV + SPIKE MINIBAG* 100 ML IV SCH ×3 (05:45→21:41)
[2020-07-18] MEDS: NEURONTIN CAP 400 MG PO SCH ×3 (05:45→21:41)
[2020-07-18] MEDS: BENTYL CAP 10 MG PO SCH ×3 (05:45→15:38)
[2020-07-18 06:11] LABS: BASOPHILS # (AUTO) 0.1 X10^3/uL (0.0-0.1); BASOPHILS % (AUTO) 0.7 % (0.2-1.0); EOSINOPHILS # (AUTO) 0.1 x10^3/uL (0.0-0.2); EOSINOPHILS % (AUTO) 1.7 % (0.9-2.9); HEMATOCRIT 29.6 % (36.0-47.0); HEMOGLOBIN 9.5 g/dL (12.0-16.0); LYMPHOCYTES # (AUTO) 1.2 X10^3/uL (1.3-2.9); LYMPHOCYTES % (AUTO) 15.1 % (21.0-51.0); MEAN CORPUSCULAR HEMOGLOBIN 26.2 pg (27.0-34.0); MEAN CORPUSCULAR HGB CONC 32.1 g/dL (33.0-35.0); MEAN CORPUSCULAR VOLUME 81.6 fL (80.0-100.0); MONOCYTES # (AUTO) 0.7 x10^3/uL (0.3-0.8); MONOCYTES % (AUTO) 8.3 % (0.0-13.0); NEUTROPHILS # (AUTO) 6.1 x10^3/uL (2.2-4.8); NEUTROPHILS % (AUTO) 74.2 % (42.0-75.0); PLATELET COUNT 182 X10^3/uL (150.0-450.0); RED BLOOD COUNT 3.62 X10^6/uL (3.5-5.4); RED CELL DISTRIBUTION WIDTH 17.2 % (11.6-16.5); WHITE BLOOD COUNT 8.2 X10^3/uL (3.6-10.0)
[2020-07-18 06:25] LABS: ALBUMIN 2.4 g/dL (3.4-5.0); CALCIUM 8.9 mg/dL (8.5-10.1); CARBON DIOXIDE 35.4 mmol/L (21-32); COR CA(FOR HYPOALB) 10.2 mg/dL (8.5-10.1); CREATININE 1.7 mg/dL (0.55-1.02); TOTAL PROTEIN 6.8 g/dL (6.4-8.2)
[2020-07-18] MEDS: NORVASC TAB 10 MG PO SCH (08:18)
[2020-07-18] MEDS: ZESTORETIC 10/ 12.5MG PO SCH (08:18)
[2020-07-18] MEDS: PROzac PO SCH (08:18)
[2020-07-18] MEDS: LOVENOX INJ 40 MG SYR SC SCH (08:18)
[2020-07-18] MEDS: ZITHROMAX INJ 500 MG VIAL 500 MG in NS 250 ML IV 250 ML IV SCH (08:19)
--- NOTE | 2020-07-18 08:35 | RAD ---
HISTORYPNEUMONIA F/USTUDYCHEST, 1 [id number]/2021FINDINGSThe trachea is midline there is stable mild cardiomegaly. There is persistent trace left pleural effusion with left lower lobe patchy radiopacities and some small ground-glass radiopacities in the left midlung zone. No new findings.IMPRESSIONPersistent left lower lobe radiopacity with a trace effusion and patchy alveolar radiopacities in the left midlung zone.Electronically signed by: Cassy Mckinnon (Jul 18, 2020 08:34:36)
--- NOTE | 2020-07-18 10:30 | US ---
HISTORYTHYRIODMEGALY. Hypertension and diabetes mellitus. Tracheal deviation.STUDYTHYROIDCOMPARISONChest radiograph 07/18/2020. CT chest 07/15/2020.TECHNIQUESeventy-six images made by the operations supervisor 2nd shift. [place] scale and color-flow Doppler images of the thyroid were obtained.FINDINGSRight lobe of the thyroid measures 52 x 17 x 21 mm. Left lobe of the thyroid measures 66 x 36 x 56 mm. Isthmus measures 4 mm. The thyroid is large in size.Multiple nodules are present compatible with a multinodular goiter.Small hyperechoic nodule in the right lobe only measures about 5 mm.Larger nodules are seen in the left lobe. The largest measures about 39 mm. This is mostly solid, isoechoic with well-defined margins. TI-RADS level 4.Another nodule measures 30 mm in longest dimension and has the same TI-RADS level.Third nodule more posteriorly measures 26 mm and is hypoechoic. Solid, wider than tall with smooth margins. No calcification. This has TI-RADS level 4.Recommend follow-up sonography in 6 months to establish stability. If these are stable in 6 months you could delay 1 more follow-up sonography until the 18 month time interval.IMPRESSION1. Multinodular goiter2. Recommend follow-up sonography in 6 monthsElectronically signed by: Fidel Harmon (Jul 18, 2020 10:29:09)
[2020-07-18] MEDS: TYLENOL #3 TAB (W/CODEINE) PO PRN (21:51)
[2020-07-18] MEDS: XANAX PO PRN ×2 (21:52→21:53)
[2020-07-19] MEDS: ZOSYN VIAL 3.375 GRAMS 3.375 G in NS 100 ML IV + SPIKE MINIBAG* 100 ML IV SCH (05:23)
[2020-07-19] MEDS: NEURONTIN CAP 400 MG PO SCH (05:30)
[2020-07-19] MEDS: BENTYL CAP 10 MG PO SCH ×2 (05:30→11:22)
[2020-07-19 06:11] LABS: BASOPHILS # (AUTO) 0.1 X10^3/uL (0.0-0.1); BASOPHILS % (AUTO) 1.3 % (0.2-1.0); EOSINOPHILS # (AUTO) 0.1 x10^3/uL (0.0-0.2); HEMATOCRIT 28.6 % (36.0-47.0); LYMPHOCYTES # (AUTO) 1.2 X10^3/uL (1.3-2.9); LYMPHOCYTES % (AUTO) 17.5 % (21.0-51.0); MEAN CORPUSCULAR HEMOGLOBIN 25.8 pg (27.0-34.0); MEAN CORPUSCULAR HGB CONC 31.5 g/dL (33.0-35.0); MEAN CORPUSCULAR VOLUME 81.9 fL (80.0-100.0); MEAN PLATELET VOLUME 7.9 fL (7.4-11.0); MONOCYTES # (AUTO) 0.6 x10^3/uL (0.3-0.8); MONOCYTES % (AUTO) 8.8 % (0.0-13.0); NEUTROPHILS # (AUTO) 4.8 x10^3/uL (2.2-4.8); NEUTROPHILS % (AUTO) 70.4 % (42.0-75.0); PLATELET COUNT 185 X10^3/uL (150.0-450.0); RED BLOOD COUNT 3.49 X10^6/uL (3.5-5.4); RED CELL DISTRIBUTION WIDTH 16.5 % (11.6-16.5); WHITE BLOOD COUNT 6.9 X10^3/uL (3.6-10.0)
[2020-07-19 06:44] LABS: ALBUMIN 2.4 g/dL (3.4-5.0); CALCIUM 8.7 mg/dL (8.5-10.1); CARBON DIOXIDE 33.5 mmol/L (21-32); CREATININE 1.52 mg/dL (0.55-1.02); TOTAL PROTEIN 6.7 g/dL (6.4-8.2)
--- NOTE | 2020-07-19 08:19 | W.DIS.FURT ---
Summary of Discharge Discharge Summary of Date Date of Exam: 07/19/20 Admission Date Date of Admission: 07/15/20 Admission Diagnosis Patient Problems (Updated 07/15/20 @ 15:54 by Vilma Harmon) Renal failure (ARF), acute on chronic (Acute) N17.9, N18.9 Thyroid enlargement (Acute) E04.9 Tracheal deviation (Acute) J39.8 Atypical pneumonia (Acute) J18.9 Sepsis (Acute) A41.9 Acute respiratory acidosis (Acute) E87.2 Mild congestive heart failure (Acute) I50.9 Hypoxia (Acute) R09.02 Hospital Course: Pt is a 60 year old female past medical history of HTN, DMT2, CKD, admitted for CHF exacerbation and community acquired pneumonia. Her hospital/treatment course included: IV antibiotics Azithromycin and Zosyn, bronchodilators, and supplemental O2. She was also treated with IV Lasix for pleural effusion revealed on CXR and elevated BNP level. Pt did have Echo with pEF 68%. On CT Chest it was noted that patient had enlarged thyroid gland and Thyroid U/S revealed non-toxic multinodular goiter, TSH and FT4 obtained were within normal limits, recommend repeat U/S in 6 months. It was also noted that on admission UA obtained showed elevated kappa light chains on UA, which will need further workup outpatient. Leukocytosis trended down and pt weaned down to 2L supplemental O2. Pt was discharged in stable condition with home oxygen requiring 2-3L, rx Levaquin, and instructed to follow up with pcp in 3-5 days. Vital Signs: Vital Signs (72 hours) 07/16/20 08:30 07/16/20 08:45 07/16/20 08:58 Temperature Pulse Rate 87 85 84 Respiratory Rate 30 H 22 Blood Pressure O2 Sat by Pulse Oximetry 97 97 100 07/16/20 09:00 07/16/20 09:15 07/16/20 09:30 Temperature Pulse Rate 85 83 83 Respiratory Rate 28 H 30 H 30 H Blood Pressure 147/65 O2 Sat by Pulse Oximetry 97 99 100 07/16/20 09:45 07/16/20 10:00 07/16/20 10:15 Temperature Pulse Rate 83 92 H 90 Respiratory Rate 33 H 33 H 26 H Blood Pressure 142/65 O2 Sat by Pulse Oximetry 97 96 95 07/16/20 10:31 07/16/20 10:45 07/16/20 11:00 Temperature Pulse Rate 88 81 79 Respiratory Rate 0 L 31 H 30 H Blood Pressure O2 Sat by Pulse Oximetry 94 L 95 07/16/20 11:01 07/16/20 11:15 07/16/20 11:30 Temperature Pulse Rate 80 79 81 Respiratory Rate 24 29 H 24 Blood Pressure 161/66 O2 Sat by Pulse Oximetry 92 L 95 96 07/16/20 11:45 07/16/20 12:00 07/16/20 12:15 Temperature Pulse Rate 82 82 79 Respiratory Rate 22 24 22 Blood Pressure 145/66 O2 Sat by Pulse Oximetry 97 95 96 07/16/20 12:30 07/16/20 12:45 07/16/20 13:00 Temperature Pulse Rate 90 90 82 Respiratory Rate 27 H 34 H 28 H Blood Pressure 145/66 O2 Sat by Pulse Oximetry 95 94 L 96 07/16/20 13:04 07/16/20 13:15 07/16/20 13:26 Temperature 98.7 F Pulse Rate 81 81 Respiratory Rate 28 H 28 H Blood Pressure O2 Sat by Pulse Oximetry 98 96 07/16/20 13:38 07/16/20 13:45 07/16/20 14:00 Temperature Pulse Rate 82 83 81 Respiratory Rate 27 H 27 H 23 Blood Pressure O2 Sat by Pulse Oximetry 95 96 95 07/16/20 14:06 07/16/20 14:15 07/16/20 14:26 Temperature Pulse Rate 83 81 Respiratory Rate 26 H 31 H 25 H Blood Pressure 146/69 O2 Sat by Pulse Oximetry 95 95 07/16/20 14:30 07/16/20 14:45 07/16/20 15:00 Temperature Pulse Rate 79 78 78 Respiratory Rate 28 H 25 H 29 H Blood Pressure O2 Sat by Pulse Oximetry 94 L 94 L 92 L 07/16/20 15:15 07/16/20 15:30 07/16/20 15:45 Temperature Pulse Rate 78 79 82 Respiratory Rate 25 H 27 H 41 H Blood Pressure O2 Sat by Pulse Oximetry 94 L 96 96 07/16/20 16:00 07/16/20 16:15 07/16/20 16:30 Temperature 98.8 F Pulse Rate 80 80 81 Respiratory Rate 30 H 23 44 H Blood Pressure O2 Sat by Pulse Oximetry 96 95 92 L 07/16/20 16:45 07/16/20 17:00 07/16/20 17:05 Temperature Pulse Rate 80 86 80 Respiratory Rate 25 H 29 H 23 Blood Pressure 132/60 O2 Sat by Pulse Oximetry 95 95 94 L 07/16/20 17:22 07/16/20 17:30 07/16/20 17:45 Temperature Pulse Rate 99 H 86 82 Respiratory Rate 31 H 54 H Blood Pressure O2 Sat by Pulse Oximetry 95 96 07/16/20 17:46 07/16/20 17:59 07/16/20 18:00 Temperature Pulse Rate 81 82 Respiratory Rate 35 H Blood Pressure 123/60 O2 Sat by Pulse Oximetry 95 96 07/16/20 19:00 07/16/20 20:00 07/16/20 20:45 Temperature 98.3 F Pulse Rate 86 81 90 Respiratory Rate 22 24 Blood Pressure 121/57 136/61 O2 Sat by Pulse Oximetry 97 97 98 07/16/20 21:00 07/16/20 22:00 07/16/20 22:15 Temperature Pulse Rate 85 86 87 Respiratory Rate 27 H 7 L 27 H Blood Pressure 131/58 144/65 O2 Sat by Pulse Oximetry 95 94 L 94 L 07/16/20 22:30 07/16/20 22:45 07/16/20 23:00 Temperature Pulse Rate 91 H 88 86 Respiratory Rate 40 H 24 23 Blood Pressure 135/63 O2 Sat by Pulse Oximetry 95 97 98 07/16/20 23:08 07/16/20 23:15 07/16/20 23:30 Temperature Pulse Rate 87 91 H 92 H Respiratory Rate 25 H 25 H 23 Blood Pressure 135/63 O2 Sat by Pulse Oximetry 99 97 98 07/16/20 23:45 07/17/20 00:00 07/17/20 00:15 Temperature 98.3 F Pulse Rate 93 H 95 H 94 H Respiratory Rate 27 H 38 H 24 Blood Pressure 130/60 O2 Sat by Pulse Oximetry 97 96 97 07/17/20 00:30 07/17/20 00:45 07/17/20 01:00 Temperature Pulse Rate 96 H 96 H 97 H Respiratory Rate 35 H 35 H 31 H Blood Pressure O2 Sat by Pulse Oximetry 97 96 94 L 07/17/20 01:09 07/17/20 01:15 07/17/20 01:30 Temperature Pulse Rate 95 H 95 H 93 H Respiratory Rate 32 H 40 H 22 Blood Pressure 130/60 O2 Sat by Pulse Oximetry 95 96 96 07/17/20 01:45 07/17/20 02:00 07/17/20 02:15 Temperature Pulse Rate 95 H 96 H 95 H Respiratory Rate 17 24 21 Blood Pressure 135/67 O2 Sat by Pulse Oximetry 96 97 96 07/17/20 02:30 07/17/20 02:45 07/17/20 03:00 Temperature Pulse Rate 96 H 92 H 94 H Respiratory Rate 36 H 21 19 Blood Pressure 140/60 O2 Sat by Pulse Oximetry 85 L 95 96 07/17/20 03:15 07/17/20 03:30 07/17/20 03:45 Temperature Pulse Rate 92 H 93 H 92 H Respiratory Rate 18 29 H 26 H Blood Pressure O2 Sat by Pulse Oximetry 95 90 L 94 L 07/17/20 04:03 07/17/20 04:15 07/17/20 04:30 Temperature Pulse Rate 100 H 91 H 91 H Respiratory Rate 24 24 32 H Blood Pressure 139/65 O2 Sat by Pulse Oximetry 95 95 07/17/20 04:45 07/17/20 05:00 07/17/20 05:15 Temperature Pulse Rate 91 H 91 H 90 Respiratory Rate 35 H 36 H 33 H Blood Pressure 115/65 O2 Sat by Pulse Oximetry 96 97 95 07/17/20 05:30 07/17/20 05:45 07/17/20 06:00 Temperature Pulse Rate 90 91 H 92 H Respiratory Rate 33 H 24 18 Blood Pressure 147/67 O2 Sat by Pulse Oximetry 94 L 95 92 L 07/17/20 06:15 07/17/20 06:30 07/17/20 06:45 Temperature Pulse Rate 90 87 80 Respiratory Rate 22 27 H 23 Blood Pressure O2 Sat by Pulse Oximetry 97 96 95 07/17/20 07:00 07/17/20 07:15 07/17/20 07:30 Temperature Pulse Rate 79 88 79 Respiratory Rate 33 H 35 H 32 H Blood Pressure O2 Sat by Pulse Oximetry 96 96 95 07/17/20 07:45 07/17/20 08:00 07/17/20 08:10 Temperature 98.0 F Pulse Rate 85 90 Respiratory Rate 36 H 29 H Blood Pressure O2 Sat by Pulse Oximetry 98 93 L 07/17/20 08:13 07/17/20 08:15 07/17/20 08:30 Temperature Pulse Rate 82 82 81 Respiratory Rate 31 H 33 H 26 H Blood Pressure 129/59 O2 Sat by Pulse Oximetry 94 L 94 L 95 07/17/20 08:45 07/17/20 08:58 07/17/20 09:34 Temperature Pulse Rate 81 83 Respiratory Rate 26 H Blood Pressure O2 Sat by Pulse Oximetry 95 92 L 91 L 07/17/20 09:43 07/17/20 09:44 07/17/20 09:45 Temperature Pulse Rate 88 79 Respiratory Rate 26 H Blood Pressure 140/64 O2 Sat by Pulse Oximetry 92 L 94 L 07/17/20 10:00 07/17/20 10:15 07/17/20 10:30 Temperature Pulse Rate 81 81 81 Respiratory Rate 31 H 25 H 26 H Blood Pressure 133/63 O2 Sat by Pulse Oximetry 94 L 95 96 07/17/20 10:45 07/17/20 11:00 07/17/20 11:15 Temperature Pulse Rate 83 82 89 Respiratory Rate 25 H 23 28 H Blood Pressure 135/64 O2 Sat by Pulse Oximetry 96 96 97 07/17/20 11:30 07/17/20 11:45 07/17/20 12:00 Temperature Pulse Rate 80 79 79 Respiratory Rate 31 H 29 H 19 Blood Pressure 143/78 O2 Sat by Pulse Oximetry 96 95 07/17/20 12:15 07/17/20 12:31 07/17/20 12:45 Temperature Pulse Rate 81 77 76 Respiratory Rate 35 H 22 25 H Blood Pressure O2 Sat by Pulse Oximetry 97 98 07/17/20 13:00 07/17/20 13:15 07/17/20 13:21 Temperature Pulse Rate 76 75 79 Respiratory Rate 28 H 23 Blood Pressure O2 Sat by Pulse Oximetry 99 97 97 07/17/20 13:30 07/17/20 13:45 07/17/20 13:58 Temperature Pulse Rate 72 72 Respiratory Rate 14 14 26 H Blood Pressure O2 Sat by Pulse Oximetry 97 97 07/17/20 14:00 07/17/20 14:15 07/17/20 14:30 Temperature Pulse Rate 82 72 Respiratory Rate 52 H 24 Blood Pressure 149/70 O2 Sat by Pulse Oximetry 95 96 07/17/20 14:45 07/17/20 14:58 07/17/20 15:00 Temperature Pulse Rate 72 72 Respiratory Rate 29 H 24 24 Blood Pressure 132/62 O2 Sat by Pulse Oximetry 96 97 07/17/20 15:15 07/17/20 15:30 07/17/20 15:45 Temperature Pulse Rate 73 74 77 Respiratory Rate 19 21 54 H Blood Pressure O2 Sat by Pulse Oximetry 96 96 97 07/17/20 16:00 07/17/20 16:01 07/17/20 16:09 Temperature 98.1 F Pulse Rate 75 77 78 Respiratory Rate 27 H 21 29 H Blood Pressure 135/103 116/58 O2 Sat by Pulse Oximetry 97 97 96 07/17/20 16:15 07/17/20 20:00 07/18/20 00:00 Temperature 98.4 F 98.1 F Pulse Rate 80 66 73 Respiratory Rate 12 20 20 Blood Pressure 113/53 131/61 O2 Sat by Pulse Oximetry 95 98 97 07/18/20 04:00 07/18/20 07:53 07/18/20 12:00 Temperature 98.5 F 98.8 F 97.5 F L Pulse Rate 78 90 79 Respiratory Rate 20 20 18 Blood Pressure 115/57 153/70 118/57 O2 Sat by Pulse Oximetry 92 L 93 L 96 07/18/20 16:00 07/18/20 20:00 07/18/20 21:00 Temperature 98.3 F 98.2 F Pulse Rate 78 74 73 Respiratory Rate 20 20 Blood Pressure 117/57 123/60 O2 Sat by Pulse Oximetry 94 L 98 96 07/18/20 21:51 07/18/20 22:51 07/19/20 00:00 Temperature 98.2 F Pulse Rate 76 Respiratory Rate 14 14 16 Blood Pressure 114/58 O2 Sat by Pulse Oximetry 94 L 07/19/20 04:00 07/19/20 08:00 Temperature 97.7 F 98.1 F Pulse Rate 71 73 Respiratory Rate 20 18 Blood Pressure 121/58 138/60 O2 Sat by Pulse Oximetry 97 97 Labs: Laboratory Last Values WBC 6.9 X10^3/uL (3.6-10.0) 07/19/20 05:40 RBC 3.49 X10^6/uL (3.5-5.4) L 07/19/20 05:40 Hgb 9.0 g/dL (12.0-16.0) L 07/19/20 05:40 Hct 28.6 % (36.0-47.0) L 07/19/20 05:40 MCV 81.9 fL (80.0-100.0) 07/19/20 05:40 MCH 25.8 pg (27.0-34.0) L 07/19/20 05:40 MCHC 31.5 g/dL (33.0-35.0) L 07/19/20 05:40 RDW 16.5 % (11.6-16.5) 07/19/20 05:40 Plt Count 185 X10^3/uL (150.0-450.0) 07/19/20 05:40 Plt Count Comment Adequate (ADEQUATE) 07/15/20 10:51 MPV 7.9 fL (7.4-11.0) 07/19/20 05:40 Neut % (Auto) 70.4 % (42.0-75.0) 07/19/20 05:40 Lymph % (Auto) 17.5 % (21.0-51.0) L 07/19/20 05:40 [place] % (Auto) 8.8 % (0.0-13.0) 07/19/20 05:40 Eos % (Auto) 2.0 % (0.9-2.9) 07/19/20 05:40 Baso % (Auto) 1.3 % (0.2-1.0) H 07/19/20 05:40 Neut # (Auto) 4.8 x10^3/uL (2.2-4.8) 07/19/20 05:40 Lymph # (Auto) 1.2 X10^3/uL (1.3-2.9) L 07/19/20 05:40 [place] # (Auto) 0.6 x10^3/uL (0.3-0.8) 07/19/20 05:40 Eos # (Auto) 0.1 x10^3/uL (0.0-0.2) 07/19/20 05:40 Baso # (Auto) 0.1 X10^3/uL (0.0-0.1) 07/19/20 05:40 Absolute Nucleated RBC 0.1 /100WBC 07/19/20 05:40 Plt Morphology Comment Normal (NORMAL) 07/15/20 10:51 RBC Morphology Abnormal (NORMAL) A 07/15/20 10:51 Hypochromasia Slight A 07/15/20 10:51 Anisocytosis Slight A 07/15/20 10:51 Microcytosis Slight A 07/15/20 10:51 Sample Site Rra 07/15/20 11:06 ABG pH 7.330 (7.35-7.45) L 07/15/20 11:06 ABG pCO2 67.0 mmHg (35.0-45.0) H* 07/15/20 11:06 ABG pO2 64.0 mmHg (80.0-100.0) L 07/15/20 11:06 ABG HCO3 35.3 mmol/L (22-26) H* 07/15/20 11:06 ABG O2 Saturation 90.0 % (90-100) 07/15/20 11:06 ABG Base Excess 7.2 mmol/L (-2.0-2.0) H 07/15/20 11:06 Escobar Test Pos 07/15/20 11:06 A-a Gradient 109.0 mmHg 07/15/20 11:06 FiO2 36.0 07/15/20 11:06 Blood Gas Comments Pt joyce well eb 07/15/20 11:06 Sodium 143 mmol/L (136-145) 07/19/20 05:40 Corrected Sodium 144 mmol/L (136-145) 07/19/20 05:40 Potassium 4.3 mmol/L (3.5-5.1) 07/19/20 05:40 Chloride 105 mmol/L (98-107) 07/19/20 05:40 Carbon Dioxide 33.5 mmol/L (21-32) H 07/19/20 05:40 BUN 22 mg/dL (7-18) H 07/19/20 05:40 Creatinine 1.52 mg/dL (0.55-1.02) H 07/19/20 05:40 Est GFR (MDRD) Af Amer 45 (>60) L 07/19/20 05:40 Est GFR (MDRD) Non-Af 37 (>60) L 07/19/20 05:40 Glucose 125 mg/dL (65-99) H 07/19/20 05:40 POC Glucose (mg/dL) 129 mg/dL (65-99) H 07/19/20 05:27 Hemoglobin A1c 6.3 % 07/16/20 05:25 Lactic Acid 1.0 mmol/L (0.4-2.0) 07/15/20 13:30 Calcium 8.7 mg/dL (8.5-10.1) 07/19/20 05:40 Corrected Calcium 10.0 mg/dL (8.5-10.1) 07/19/20 05:40 Total Bilirubin 0.20 mg/dL (0.2-1.0) 07/19/20 05:40 AST 33 Units/L (15-37) 07/19/20 05:40 ALT 36 Units/L (12-78) 07/19/20 05:40 Alkaline Phosphatase 111 Units/L (46-116) 07/19/20 05:40 Creatine Kinase 97 Units/L (26-192) 07/15/20 10:51 CK-MB (CK-2) 1.6 ng/mL (0-4.0) 07/15/20 10:51 CK/CKMB % Calc 1.7 % (<4) 07/15/20 10:51 Troponin I < 0.02 ng/mL (0-1.5) 07/15/20 10:51 B-Natriuretic Peptide 103 pg/mL (0-79) H 07/15/20 10:51 Total Protein 6.7 g/dL (6.4-8.2) 07/19/20 05:40 Albumin 2.4 g/dL (3.4-5.0) L 07/19/20 05:40 Globulin 4.3 g/dL (2.5-4.5) 07/19/20 05:40 Albumin/Globulin Ratio 0.6 Ratio (1.1-2.1) L 07/19/20 05:40 Free T4 1.01 ng/dL (0.76-1.46) 07/16/20 05:25 TSH 3rd Generation 0.807 uIU/mL (0.358-3.74) 07/16/20 05:25 SARS CoV-2 RNA Rapid DEVONTE Negative (NEGATIVE) 07/15/20 15:00 Reason For Visit: SEPSIS,ATYPICAL PNEU,HYPOXIA,RESP ACIDOSIS,MILD CH Discharge Date Discharge Date: 07/19/20 Discharge Diagnosis All Active Problems (Updated 07/15/20 @ 15:54 by Vilma Harmon) Diarrhea in adult patient (Acute) Renal failure (ARF), acute on chronic (Acute) Acute dehydration (Acute) Metabolic acidosis (Acute) Acute hyperkalemia (Acute) Thyroid enlargement (Acute) Tracheal deviation (Acute) Atypical pneumonia (Acute) Sepsis (Acute) Acute respiratory acidosis (Acute) Mild congestive heart failure (Acute) Hypoxia (Acute) Plan of Treatment: Continue with present treatment and follow up plan. Pt is to keep follow up appointment as instructed and take medications as ordered. Discharge Medications Discharge Medications: aspirin Allergy (Verified 03/17/20 18:05) CONTINUE taking the following medications acetaminophen-codeine 1 tab PO TID PRN 07/15/20 [History] alprazolam [Xanax] 0.25 mg PO BID PRN 07/15/20 [History] amlodipine 10 mg PO DAILY 07/15/20 [History] gabapentin 1,600 mg PO TID 07/15/20 [History] mupirocin 1 applic TOPICAL BID 07/15/20 [History] New Prescriptions levofloxacin 750 mg PO Q24H 5 Days #5 tab 07/19/20 [Rx] Follow up and Referral Follow Up: 1 Week Discharge Disposition Assessment: Stable no acute distress noted at time of discharge. Discharge Disposition: Home Discharge Condition: Stable Discharge Plan Discharge Plan Hospital Course: Pt is a 60 year old female past medical history of HTN, DMT2, CKD, admitted for CHF exacerbation and community acquired pneumonia. Her hospital/treatment course included: IV antibiotics Azithromycin and Zosyn, bronchodilators, and supplemental O2. She was also treated with IV Lasix for pleural effusion revealed on CXR and elevated BNP level. Pt did have Echo with pEF 68%. On CT Chest it was noted that patient had enlarged thyroid gland and Thyroid U/S revealed non-toxic multinodular goiter, TSH and FT4 obtained were within normal limits, recommend repeat U/S in 6 months. It was also noted that on admission UA obtained showed elevated kappa light chains on UA, which will need further workup outpatient. Leukocytosis trended down and pt weaned down to 2L supplemental O2. Pt was discharged in stable condition with home oxygen requiring 2-3L, rx Levaquin, and instructed to follow up with pcp in 3-5 days. Patient Disposition: HOME, SELF-CARE Condition: Stable Health Concerns: Post Hospitalization: new medications and changes needed to prevent readmission or further decline. Pt educated and given instructions on all concerns. Care Plan Goals: Problem: Respiratory Complications Goal: Improved Uncomplicated Respiratory Status Instructions: Follow provided instructions. Follow up with primary physician as directed. Contact primary care physician or report to the closest Emergency Room if condition worsens. Plan of Treatment: Continue with present treatment and follow up plan. Pt is to keep follow up appointment as instructed and take medications as ordered. Assessment: Stable no acute distress noted at time of discharge. Prescriptions: New levofloxacin 750 mg tablet 750 mg PO Q24H 5 Days Qty: 5 RF: 0 Continued acetaminophen-codeine 300-30 mg Tablet 1 tab PO TID PRNRF: 0 alprazolam [Xanax] 0.25 mg Tablet 0.25 mg PO BID PRNRF: 0 amlodipine 10 mg Tablet 10 mg PO DAILY RF: 0 mupirocin 2 % Ointment 1 applic TOPICAL BID RF: 0 gabapentin 800 mg Tablet 1,600 mg PO TID RF: 0 fluoxetine 40 mg capsule 40 mg PO DAILY RF: 0 meloxicam 15 mg tablet 15 mg PO DAILY RF: 0 dicyclomine 20 mg tablet 20 mg PO AC RF: 0 Discontinued furosemide [Lasix] 20 mg Tablet 60 mg PO QAM RF: 0 lisinopril-hydrochlorothiazide 20-25 mg tablet 1 tab PO DAILY RF: 0 Follow ups/Referrals Follow ups/Referrals: DIANA CARR [Primary Care Provider] - 07/26/20 9:00 am Instructions Instructions: Shortness of Breath, Adult, [id number], Incentive Spirometer, Home Oxygen Use, Adult, Acute Kidney Injury, Adult, Hypertension, [id number], Community-Acquired Pneumonia, Adult, [id number] Stand Alone Forms: Excuse From Work or School, Precautions for COVID19, Patient Portal, Social Distancing
--- NOTE | 2020-07-19 08:20 | PCM.PROG ---
Progress Note Progress Note for Day of Date of Exam: 07/18/20 Subjective Subjective: Pt is a 60 year old female past medical history of HTN, DMT2, CKD, admitted for CHF exacerbation and community acquired pneumonia. Her breathing continues to gradually improve. Labs/imaging: Wbc 6.9, Hgb 9.0, Plt 185, Na 143, K 4.3, Creatinine 1.52, Glucose 125, Blood cultures negative. Pt is currently requiring 3L nasal cannula. She does have Echo and Thyroid U/S scheduled today for further evaluation. She is currently receiving IV antibiotics Azithromycin and Zosyn. Continue bronchodilators. Wean O2 as tolerated. Will have ambulatory walk test to determine home oxygen on discharge. Pt also had elevated kappa light chains on UA, which will need further workup outpatient. Otherwise c ontinue current treatment plan. Monitor and follow up labs/imaging in the morning. Past Medical Family Social History Past Med/Fam/Surg Hx: No changes since H&P Allergies: Allergies aspirin Allergy (Verified 03/17/20 18:05) Review of Systems ROS: No change since H&P Vital Signs and I&O's Vital Signs: Temperature 98.1 F Pulse Rate [Left Radial] 86 Pulse Rate 73 Respiratory Rate 18 Blood Pressure [Right Arm] 174/80 Blood Pressure 138/60 O2 Sat by Pulse Oximetry 97 Intake and Output: Intake & Output 07/16/20 07/17/20 07/18/20 07/19/20 23:59 23:59 23:59 23:59 Intake Total 2030 3143 / 3143 2111 393 / 393 Balance 2030 3143 / 3143 2111 393 / 393 Physical Exam Oriented: Normal Eyes: Normal Ear: Normal Nose: Normal Throat: Normal Respiratory: Diminished Cardiovascular: Normal : Normal Auscultation: Bowel Sounds: Normal Tenderness: Normal Skin: Normal Musculoskeletal: Normal Psychiatric: Normal Mood Description: Calm and Appropriate Affect: Normal Speech Pattern: Clear and Appropriate Laboratory and Diagnostics Result Diagrams: 07/19/20 05:40 07/19/20 05:40 Labs: 07/15/20 13:37 Blood Blood Culture - Preliminary 07/15/20 13:30 Blood Blood Culture - Preliminary Laboratory WBC 6.9 X10^3/uL (3.6-10.0) 07/19/20 05:40 RBC 3.49 X10^6/uL (3.5-5.4) L 07/19/20 05:40 Hgb 9.0 g/dL (12.0-16.0) L 07/19/20 05:40 Hct 28.6 % (36.0-47.0) L 07/19/20 05:40 MCV 81.9 fL (80.0-100.0) 07/19/20 05:40 MCH 25.8 pg (27.0-34.0) L 07/19/20 05:40 MCHC 31.5 g/dL (33.0-35.0) L 07/19/20 05:40 RDW 16.5 % (11.6-16.5) 07/19/20 05:40 Plt Count 185 X10^3/uL (150.0-450.0) 07/19/20 05:40 Plt Count Comment Adequate (ADEQUATE) 07/15/20 10:51 MPV 7.9 fL (7.4-11.0) 07/19/20 05:40 Neut % (Auto) 70.4 % (42.0-75.0) 07/19/20 05:40 Lymph % (Auto) 17.5 % (21.0-51.0) L 07/19/20 05:40 [place] % (Auto) 8.8 % (0.0-13.0) 07/19/20 05:40 Eos % (Auto) 2.0 % (0.9-2.9) 07/19/20 05:40 Baso % (Auto) 1.3 % (0.2-1.0) H 07/19/20 05:40 Neut # (Auto) 4.8 x10^3/uL (2.2-4.8) 07/19/20 05:40 Lymph # (Auto) 1.2 X10^3/uL (1.3-2.9) L 07/19/20 05:40 [place] # (Auto) 0.6 x10^3/uL (0.3-0.8) 07/19/20 05:40 Eos # (Auto) 0.1 x10^3/uL (0.0-0.2) 07/19/20 05:40 Baso # (Auto) 0.1 X10^3/uL (0.0-0.1) 07/19/20 05:40 Absolute Nucleated RBC 0.1 /100WBC 07/19/20 05:40 Plt Morphology Comment Normal (NORMAL) 07/15/20 10:51 RBC Morphology Abnormal (NORMAL) A 07/15/20 10:51 Hypochromasia Slight A 07/15/20 10:51 Anisocytosis Slight A 07/15/20 10:51 Microcytosis Slight A 07/15/20 10:51 Sample Site Rra 07/15/20 11:06 ABG pH 7.330 (7.35-7.45) L 07/15/20 11:06 ABG pCO2 67.0 mmHg (35.0-45.0) H* 07/15/20 11:06 ABG pO2 64.0 mmHg (80.0-100.0) L 07/15/20 11:06 ABG HCO3 35.3 mmol/L (22-26) H* 07/15/20 11:06 ABG O2 Saturation 90.0 % (90-100) 07/15/20 11:06 ABG Base Excess 7.2 mmol/L (-2.0-2.0) H 07/15/20 11:06 Escobar Test Pos 07/15/20 11:06 A-a Gradient 109.0 mmHg 07/15/20 11:06 FiO2 36.0 07/15/20 11:06 Blood Gas Comments Pt joyce well eb 07/15/20 11:06 Sodium 143 mmol/L (136-145) 07/19/20 05:40 Corrected Sodium 144 mmol/L (136-145) 07/19/20 05:40 Potassium 4.3 mmol/L (3.5-5.1) 07/19/20 05:40 Chloride 105 mmol/L (98-107) 07/19/20 05:40 Carbon Dioxide 33.5 mmol/L (21-32) H 07/19/20 05:40 BUN 22 mg/dL (7-18) H 07/19/20 05:40 Creatinine 1.52 mg/dL (0.55-1.02) H 07/19/20 05:40 Est GFR (MDRD) Af Amer 45 (>60) L 07/19/20 05:40 Est GFR (MDRD) Non-Af 37 (>60) L 07/19/20 05:40 Glucose 125 mg/dL (65-99) H 07/19/20 05:40 POC Glucose (mg/dL) 129 mg/dL (65-99) H 07/19/20 05:27 Hemoglobin A1c 6.3 % 07/16/20 05:25 Lactic Acid 1.0 mmol/L (0.4-2.0) 07/15/20 13:30 Calcium 8.7 mg/dL (8.5-10.1) 07/19/20 05:40 Corrected Calcium 10.0 mg/dL (8.5-10.1) 07/19/20 05:40 Total Bilirubin 0.20 mg/dL (0.2-1.0) 07/19/20 05:40 AST 33 Units/L (15-37) 07/19/20 05:40 ALT 36 Units/L (12-78) 07/19/20 05:40 Alkaline Phosphatase 111 Units/L (46-116) 07/19/20 05:40 Creatine Kinase 97 Units/L (26-192) 07/15/20 10:51 CK-MB (CK-2) 1.6 ng/mL (0-4.0) 07/15/20 10:51 CK/CKMB % Calc 1.7 % (<4) 07/15/20 10:51 Troponin I < 0.02 ng/mL (0-1.5) 07/15/20 10:51 B-Natriuretic Peptide 103 pg/mL (0-79) H 07/15/20 10:51 Total Protein 6.7 g/dL (6.4-8.2) 07/19/20 05:40 Albumin 2.4 g/dL (3.4-5.0) L 07/19/20 05:40 Globulin 4.3 g/dL (2.5-4.5) 07/19/20 05:40 Albumin/Globulin Ratio 0.6 Ratio (1.1-2.1) L 07/19/20 05:40 Free T4 1.01 ng/dL (0.76-1.46) 07/16/20 05:25 TSH 3rd Generation 0.807 uIU/mL (0.358-3.74) 07/16/20 05:25 SARS CoV-2 RNA Rapid DEVONTE Negative (NEGATIVE) 05/29/21 15:00 Plan (1) Atypical pneumonia: Status: Acute (2) Mild congestive heart failure: Status: Acute (3) Hypoxia: Status: Acute (4) Thyroid enlargement: Status: Acute (5) Renal failure (ARF), acute on chronic: Status: Acute Qualifiers: Acute renal failure type: unspecified Chronic kidney disease stage: stage 4 (severe) Qualified Code(s): N17.9 - Acute kidney failure, unspecified; N18.4 - Chronic kidney disease, stage 4 (severe)
[2020-07-19] MEDS: PROzac PO SCH (09:28)
[2020-07-19] MEDS: NORVASC TAB 10 MG PO SCH (09:28)
[2020-07-19] MEDS: ZESTORETIC 10/ 12.5MG PO SCH (09:28)
[2020-07-19] MEDS: ZITHROMAX INJ 500 MG VIAL 500 MG in NS 250 ML IV 250 ML IV SCH (09:28)
[2020-07-19] MEDS: LOVENOX INJ 40 MG SYR SC SCH (09:28)
[2020-07-19 12:07] VITALS: BP 125/58
== END 2020-07-19 13:15 | disposition home or self-care (01) | DRG 871 ==
LOC: ER 10:48 → ICU 15:58 → MED/SURG 07-17 16:51
PROVIDERS: ADMIT Family Medicine; ATTEND Family Medicine
DX: I87.2 Venous insufficiency (chronic) (peripheral); R06.02 Shortness of breath; J18.8 Other pneumonia, unspecified organism; N18.4 Chronic kidney disease, stage 4 (severe); E04.8 Other specified nontoxic goiter; N17.8 Other acute kidney failure; Z66 Do not resuscitate; R09.02 Hypoxemia; J90 Pleural effusion, not elsewhere classified; I10 Essential (primary) hypertension; E11.65 Type 2 diabetes mellitus with hyperglycemia; Z20.822 Contact with and (suspected) exposure to COVID-19; I50.9 Heart failure, unspecified; A41.89 Other specified sepsis

== ENCOUNTER 2024-11-01 21:24 | Inpatient (IN) ==
[2024-11-01 21:38] LABS: ABG PO2 51.0 mmHg (80.0-100.0)
[2024-11-01 21:39] LABS: ABG PCO2 > 115.0 mmHg (35.0-45.0); ABG PH 7.110 (7.35-7.45)
[2024-11-01 21:40] LABS: ABG ALLEN TEST POS
--- NOTE | 2024-11-01 21:48 | EKG ---
Test Reason : hypoxia, lethargy Blood Pressure : */* mmHG Vent. Rate : 87 BPM Atrial Rate : 87 BPM P-R Int : 174 ms QRS Dur : 82 ms QT Int : 344 ms P-R-T Axes : 64 25 65 degrees QTc Int : 413 ms Normal sinus rhythm Cannot rule out Anterior infarct , age undetermined Abnormal ECG When compared with ECG of 11-OCT-2024 09:57, No significant change was found Confirmed by Ed Quinn MD ([id number]) on 11/02/2024 7:20:44 AM Referred By: Confirmed By: Ed Quinn MD
[2024-11-01 22:04] LABS: MEAN PLATELET VOLUME 9.7 fL (7.4-11.0)
[2024-11-01 22:08] LABS: COR CA(FOR HYPOALB) 10.3 mg/dL (8.5-10.1); COR NA(FOR HYPERGLY) 146 mmol/L (136-145); CREATININE 1.82 mg/dL (0.55-1.02); eGFR NON BLACK RACES 30 (>60)
[2024-11-01 22:10] LABS: SERUM ACETONE NEGATIVE (NEGATIVE)
[2024-11-01 22:15] LABS: RED CELL DISTRIBUTION WIDTH 16.2 % (11.6-16.5)
[2024-11-01 22:23] LABS: PLATELET MORPHOLOGY COMMENT NORMAL (NORMAL)
[2024-11-02 00:23] LABS: ABG BASE EXCESS 7.6 mmol/L (-2.0-2.0); ABG OXYGEN SATURATION 92.0 % (90-100); ABG PO2 79.0 mmHg (80.0-100.0)
[2024-11-02 00:24] LABS: ABG PCO2 109.0 mmHg (35.0-45.0); ABG PH 7.170 (7.35-7.45)
[2024-11-02 00:25] LABS: ABG ALLEN TEST POS; ABG HCO3 39.8 mmol/L (22-26)
[2024-11-02 00:32] LABS: BLOOD/HEMOGLOBIN,URINE 1+ (NEGATIVE); LEUKOCYTE ESTERASE ,URINE NEGATIVE (NEGATIVE); NITRITES,URINE NEGATIVE (NEGATIVE)
[2024-11-02 00:33] LABS: APPEARANCE,URINE CLEAR (CLEAR); SQUAMOUS EPITHELIAL CELL,UR RARE /HPF (NEGATIVE)
--- NOTE | 2024-11-02 00:41 | DR.AMS ---
HPI Time Seen Time Seen by Provider: 11/01/24 21:40 PCP Primary Care Physician: Donny Keane Complaint Cheif Complaint Doctors Comments: Patient brought in by care home nurses due to unresponsiveness and decreased O2 saturation as low as 28% on 2 L nasal cannula. Patient did appear cyanotic on arrival and she was nonresponsive. Patient was recently transferred due to bilateral pneumonia and empyema with hypoxia. At this time patient is DNR and does not want to be intubated, per care home staff. Chief Complaint:: Patient brought in by [employer] employees with complaints of unresponsiveness and decreased O2 saturation. Upon er arrival O2 sat 28% on 2L NC. Cyanosis noted with decreased responsiveness. COVID-19 Coronavirus risk:travel/contact w/high risk person: No Has patient experienced Coronavirus symptoms: Yes Coronavirus symptoms experienced: Shortness of Breath Source History Provided: Halfway Mode of Arrival Mode of Arrival: Stretcher Timing Onset of Chief Complaint: 11/01/24 PMH PMH Past Medical History: Yes Past Medical History: Anxiety, Arthritis, CHF, COPD, Depression, Diabetes, Dyslipidemia, GERD, Hypertension, Hyperthyroidism and Renal Disease Past Medical History Comment: CKD, Thryoid mass, insomnia, RLS, COPD, Past Surgical History: Yes Surgical History: Ortho Surgery Family History History of Family Medical Conditions: Yes Family Medical History: Diabetes Mellitus, Cancer, [place], Heart Failure and Hypertension Social History Does patient currently use any type of tobacco product: No Have you used tobacco products in the last 12 months: No Type of Tobacco Use: None Does any household member use tobacco: No Alcohol Use: None Do you use any recreational Drugs:: No Lives With: Other Lives Where: [place] Travel Risk Coronavirus risk:travel/contact w/high risk person: No Has patient experienced Coronavirus symptoms: Yes Coronavirus symptoms experienced: Shortness of Breath Infectious screening Have you traveled outside the country in the last 6 months?: No Isolation: Standard ROS Review of Systems Unable to Obtain Due To: Medical urgency PE Vitals Vital Signs: Temp Pulse Resp BP Pulse Ox O2 Del Method FiO2 11/02/24 01:00 159/72 11/02/24 01:00 71 21 94 L 11/02/24 00:45 71 22 97 11/02/24 00:30 71 20 97 11/02/24 00:30 159/72 11/02/24 00:15 70 21 99 11/02/24 00:06 154/70 11/02/24 00:06 154/70 11/02/24 00:06 154/70 11/02/24 00:06 70 24 99 11/02/24 00:02 68 22 100 11/01/24 23:45 66 22 100 11/01/24 23:30 152/70 11/01/24 23:30 66 22 100 11/01/24 23:15 68 22 99 11/01/24 23:00 154/70 11/01/24 23:00 70 24 99 11/01/24 22:45 72 24 98 11/01/24 22:30 156/70 11/01/24 22:30 75 25 H 96 11/01/24 22:15 78 26 H 94 L 11/01/24 22:00 159/72 11/01/24 22:00 80 27 H 92 L 11/01/24 21:55 50 11/01/24 21:45 86 6 L 96 11/01/24 21:40 164/73 11/01/24 21:40 97.0 F L 89 24 94 L 11/01/24 21:40 164/73 11/01/24 21:30 93 H 29 H 75 L 11/01/24 21:30 167/72 11/01/24 21:28 94 H 67 L 11/01/24 21:25 96.8 F L 94 H 28 H 164/73 28 L Nasal Cannula General Limitations: Altered Mental Status General Appearance: Obtunded and In Distress Head Head Exam: Normal Inspection Neck Neck Exam: Normal Inspection Chest Chest Inspection: Normal Inspection Respiratory Respiratory Exam: Respiratory Distress and Other (Coarse bilaterally) Cardiovascular Cardiovascular Exam: Regular Rate and Normal Rhythm Abdominal Exam Abdominal Exam: Normal Inspection, Normal Bowel Sounds and Soft Extremities Extremities Exam: Normal Capillary Refill and Edema Neurological Neurological Exam: Reflexes Normal and Other (Unable to assess fully due to patient being unresponsive.) Psychological Psychiatric Exam: Normal Affect and Normal Mood Skin Skin Exam: Warm, Dry, Intact and Normal Color COURSE Treatment Treatment: Patient improved significantly on BiPAP. Patient given Lasix. Started Vanco and Zosyn based on chest x-ray. Consultation Called: 01:34 Consultation Comments: Discussed case with Dr. Xavier and she is agreeable to admission. ROR Labs Reviewed Laboratory Results Reviewed?: Yes 11/01/24 21:35 11/01/24 21:35 Laboratory: WBC 8.2 X10^3/uL (3.6-10.0) 11/01/24 21: RBC 3.96 X10^6/uL (3.5-5.4) 11/01/24 21: Hgb 10.5 g/dL (12.0-16.0) L 11/01/24 21: Hct 32.7 % (36.0-47.0) L 11/01/24 21: MCV 82.5 fL (80.0-100.0) 11/01/24 21: MCH 26.5 pg (27.0-34.0) L 11/01/24: MCHC 32.1 g/dL (33.0-35.0) L 11/01/24 21: RDW 16.2 % (11.6-16.5) 11/01/24: Plt Count 163 X10^3/uL (150.0-450.0) 11/01/24: Plt Count Comment Adequate (ADEQUATE) 11/01/24 21: MPV 9.7 fL (7.4-11.0) 11/01/24 21: Neut % (Auto) 85.1 % (42.0-75.0) H 11/01/24: Lymph % (Auto) 7.4 % (21.0-51.0) L 11/01/24 21: [place] % (Auto) 6.7 % (0.0-13.0) 11/01/24 21: Eos % (Auto) 0.1 % (0.9-2.9) L 11/01/24 21: Baso % (Auto) 0.7 % (0.2-1.0) 11/01/24 21: Neut # (Auto) 6.9 x10^3/uL (2.2-4.8) H 11/01/24 21: Lymph # (Auto) 0.6 X10^3/uL (1.3-2.9) L 11/01/24 21:35 [place] # (Auto) 0.5 x10^3/uL (0.3-0.8) 11/01/24 21:35 Eos # (Auto) 0.0 x10^3/uL (0.0-0.2) 11/01/24 21:35 Baso # (Auto) 0.1 X10^3/uL (0.0-0.1) 11/01/24 21:35 Absolute Nucleated RBC 0.7 /100WBC 11/01/24 21:35 Plt Morphology Comment Normal (NORMAL) 11/01/24 21:35 RBC Morphology Normal (NORMAL) 11/01/24 21:35 Sample Site Lrad 11/02/24 00:13 ABG pH 7.170 (7.35-7.45) L* 11/02/24 00:13 ABG pCO2 109.0 mmHg (35.0-45.0) H* 11/02/24 00:13 ABG pO2 79.0 mmHg (80.0-100.0) L 11/02/24 00:13 ABG HCO3 39.8 mmol/L (22-26) H* 11/02/24 00:13 ABG O2 Saturation 92.0 % (90-100) 11/02/24 00:13 ABG Base Excess 7.6 mmol/L (-2.0-2.0) H 11/02/24 00:13 Escobar Test Pos 11/02/24 00:13 A-a Gradient 141.0 mmHg 11/02/24 00:13 FiO2 50.0 11/02/24 00:13 Blood Gas Comments Bhavesh well-mtf 11/02/24 00:13 Sodium 144 mmol/L (136-145) 11/01/24 21:35 Corrected Sodium 146 mmol/L (136-145) H 11/01/24 21:35 Potassium 4.6 mmol/L (3.5-5.1) 11/01/24 21:35 Chloride 103 mmol/L (98-107) 11/01/24 21:35 Carbon Dioxide 37.5 mmol/L (21-32) H 11/01/24 21:35 BUN 29 mg/dL (7-18) H 11/01/24 21:35 Creatinine 1.82 mg/dL (0.55-1.02) H 11/01/24 21:35 Est GFR (MDRD) Af Amer 36 (>60) L 11/01/24 21:35 Est GFR (MDRD) Non-Af 30 (>60) L 11/01/24 21:35 Glucose 181 mg/dL (65-99) H 11/01/24 21:35 Lactic Acid 0.9 mmol/L (0.4-2.0) 11/01/24 21:35 Calcium 9.4 mg/dL (8.5-10.1) 11/01/24 21:35 Corrected Calcium 10.3 mg/dL (8.5-10.1) H 11/01/24 21:35 Total Bilirubin 0.50 mg/dL (0.2-1.0) 11/01/24 21:35 AST 28 Units/L (15-37) 11/01/24 21:35 ALT 13 Units/L (12-78) 11/01/24 21:35 Alkaline Phosphatase 120 Units/L (46-116) H 11/01/24 21:35 Troponin I High Sens 26.6 ng/L (4.0-60.0) 11/01/24 23:58 B-Natriuretic Peptide 894 pg/mL (0-79) H 11/01/24 21:35 Total Protein 8.4 g/dL (6.4-8.2) H 11/01/24 21:35 Albumin 2.9 g/dL (3.4-5.0) L 11/01/24 21:35 Globulin 5.5 g/dL (2.5-4.5) H 11/01/24 21:35 Albumin/Globulin Ratio 0.5 Ratio (1.1-2.1) L 11/01/24 21:35 Specimen Type Catherized urine 11/02/24 00:11 Urine Color Pale yellow (YELLOW) 11/02/24 00:11 Urine Appearance Clear (CLEAR) 11/02/24 00:11 Urine pH 5.0 (5.0 - 8.0) 11/02/24 00:11 Ur Specific [place] 1.020 (1.000-1.030) 11/02/24 00:11 Urine Protein 4+ (NEGATIVE) 11/02/24 00:11 Urine Glucose (UA) 1+ (NEGATIVE) 11/02/24 00:11 Urine Ketones Negative (NEGATIVE) 11/02/24 00:11 Urine Blood 1+ (NEGATIVE) 11/02/24 00:11 Urine Nitrite Negative (NEGATIVE) 11/02/24 00:11 Urine Bilirubin Negative (NEGATIVE) 11/02/24 00:11 Urine Urobilinogen Normal (NORMAL) 11/02/24 00:11 Ur Leukocyte Esterase Negative (NEGATIVE) 11/02/24 00:11 Urine RBC 0-2 /HPF (0-3) 11/02/24 00:11 Urine WBC 0-2 /HPF (0-5) 11/02/24 00:11 Ur Squamous Epith Cells Rare /HPF (NEGATIVE) 11/02/24 00:11 Amorphous Sediment Trace /HPF (NEGATIVE) 11/02/24 00:11 Urine Bacteria Trace /HPF (NEGATIVE) 11/02/24 00:11 Urine Mucus Rare /HPF (NEGATIVE) 11/02/24 00:11 Ur Culture Indicated? No/not indicated 11/02/24 00:11 Acetone, Semi-Quant Negative (NEGATIVE) 11/01/24 21:35 SARS-CoV-2 (PCR) Negative (NEGATIVE) 11/01/24 21:36 Influenza Type A (PCR) Negative (NEGATIVE) 11/01/24 21:36 Influenza Type B (PCR) Negative (NEGATIVE) 11/01/24 21:36 RSV (PCR) Negative (NEGATIVE) 11/01/24 21:36 XRAY XRAY Interpreted by: Self (Chest x-ray reviewed and interpreted by myself. Bilateral pneumonia with infiltrates.) Opioid Opioid Risk Tool Age (Jovanni box if 16-45): No History of Preadolescent Sexual Abuse: No Total: 0 Total Score Risk Category: Low Risk Copyright: Yann VALENTINE predicting aberrant behaviors Discharge Plan Diagnosis Discharge Problem: Acute exacerbation of CHF (congestive heart failure), Bilateral pneumonia, Type 2 diabetes mellitus, HTN (hypertension), Acute on chronic kidney failure Discharge Plan Patient Disposition: ADMITTED INPATIENT Condition: Stable Prescriptions: No Action meloxicam 15 mg tablet 15 mg PO QDAY PRN acetaminophen-codeine 300-30 mg Tablet 1 tab PO Q6H PRN amlodipine 10 mg Tablet 10 mg PO DAILY gabapentin 800 mg Tablet 1,600 mg PO TID ondansetron HCl 8 mg tablet 8 mg PO Q12H PRN (Reason: Nausea And Vomiting) clonazepam 0.5 mg tablet 0.5 mg PO QHS potassium chloride 10 mEq Tablet Extended Release 10 meq PO QDAY escitalopram oxalate [Lexapro] 10 mg Tablet 10 mg PO QDAY cholecalciferol (vitamin D3) 125 mcg (5,000 unit) Tablet 125 mcg PO QDAY furosemide 40 mg tablet 40 mg PO QAM pantoprazole 40 mg tablet,delayed release (DR/EC) 40 mg PO QDAY trazodone 100 mg tablet 100 mg PO QHS Health Concerns: Post Hospitalization: new medications and changes needed to prevent readmission or further decline. Pt educated and given instructions on all concerns. Plan of Treatment: Continue with present treatment and follow up plan. Pt is to keep follow up appointment as instructed and take medications as ordered. Orders to Discharge Patient Discharge Orders: Transfer (Routine); Ordered 11/02/24 Ordered By: Stephan Berger Follow ups/Referrals Follow ups/Referrals: [facility],None [Primary Care Provider] - 3 days Instructions Stand Alone Forms: Find Help Web Site, Post Hospital Follow Up Care Print Language: KOREAN
[2024-11-02] MEDS: ZOSYN VIAL 3.375 GRAMS 3.375 G in NS 100 ML IV 100 ML IV ONE (00:57)
[2024-11-02] MEDS: LASIX IVP ONE (01:00)
[2024-11-02] MEDS: VANCOMYCIN IV *PREMIX 1 G/200 ML BAG 1 G/200 ML PIGGYBACK IV ONE (01:32)
[2024-11-02 02:31] LABS: ABG BASE EXCESS 5.7 mmol/L (-2.0-2.0); ABG OXYGEN SATURATION 87.0 % (90-100); ABG PO2 66.0 mmHg (80.0-100.0)
[2024-11-02 02:32] LABS: ABG PH 7.180 (7.35-7.45)
[2024-11-02 02:33] LABS: ABG HCO3 37.3 mmol/L (22-26); ABG PCO2 100.0 mmHg (35.0-45.0)
[2024-11-02 02:34] LABS: ABG ALLEN TEST POS
[2024-11-02] MEDS ORDERED: CONSULT PHARMACY - POTASSIUM & MAGNESIUM XX SCH (03:47)
[2024-11-02] MEDS ORDERED: NovoLIN R (or HumuLIN R) SUBCUT PRN (03:47)
[2024-11-02] MEDS ORDERED: NS 250 ML IV 25 ML IV PRN (03:47)
[2024-11-02] MEDS ORDERED: PHARMACY CONSULT - VANCOMYCIN XX SCH (03:47)
[2024-11-02] MEDS ORDERED: NS 1,000 ML IV 1,000 ML ONE (03:50)
[2024-11-02] MEDS ORDERED: PHARMACY CONSULT LTC MEDICATIONS XX SCH (04:00)
[2024-11-02] MEDS: ZOSYN VIAL 3.375 GRAMS 3.375 G in NS 100 ML IV 100 ML IV SCH ×2 (04:02→05:19)
[2024-11-02] MEDS: NS 1,000 ML IV 1,000 ML IV SCH (04:32)
[2024-11-02 05:15] LABS: MEAN PLATELET VOLUME 9.3 fL (7.4-11.0); RED CELL DISTRIBUTION WIDTH 15.8 % (11.6-16.5)
[2024-11-02 05:20] LABS: COR CA(FOR HYPOALB) 10.2 mg/dL (8.5-10.1); CREATININE 1.95 mg/dL (0.55-1.02); eGFR NON BLACK RACES 27 (>60)
[2024-11-02] MEDS: NS 250 ML IV 25 ML IV PRN (05:20)
[2024-11-02 05:36] LABS: BAND NEUTROPHILS % 1 % (0-10); PLATELET MORPHOLOGY COMMENT NORMAL (NORMAL)
[2024-11-02 06:08] LABS: ABG BASE EXCESS 6.9 mmol/L (-2.0-2.0); ABG PO2 63.0 mmHg (80.0-100.0)
[2024-11-02 06:09] LABS: ABG PH 7.180 (7.35-7.45)
[2024-11-02 06:10] LABS: ABG PCO2 104.0 mmHg (35.0-45.0)
[2024-11-02 06:11] LABS: ABG ALLEN TEST POS; ABG HCO3 38.8 mmol/L (22-26); ABG OXYGEN SATURATION 85.0 % (90-100)
[2024-11-02] MEDS: VANCOMYCIN HCL 1 G in D5W 250 ML IV 250 ML IV ONE (06:33)
--- NOTE | 2024-11-02 07:10 | RAD ---
EXAM: CHEST HISTORY: unresponsiveness and decreased O2 saturation. Upon er arrival O2 sat 28% on 2L NC. Cyanosis noted with decreased responsiveness.; COMPARISON: July 19, 2024. TECHNIQUE: Frontal view of the chest was submitted for interpretation. FINDINGS: The cardiomediastinal silhouette is markedly enlarged. Lungs show worsening pulmonary edema with bilateral pleural effusions. IMPRESSION: Worsening pulmonary edema and bilateral pleural effusions THIS IS AN ELECTRONICALLY VERIFIED FINAL REPORT 11/02/2024 7:07 AM - Electronically signed by Iban Buckley MD
[2024-11-02] MEDS: PULMICORT NEB TX 0.5 MG NEB SCH (08:17)
[2024-11-02] MEDS: DUONEB 0.5 MG/3 MG (3 mL) NEB SCH (08:17)
--- NOTE | 2024-11-02 08:17 | RAD ---
EXAMINATION: CHEST, 1 VIEW HISTORY: PNEMONIA, HYPOXIA ; CHF, COPD, DM, GERD, HTN, RENAL DISEASE, CKD SX: ORTHO . COMPARISON STUDY: Chest x-ray 11/01/2024 TECHNIQUE: Single portable AP view of the chest FINDINGS: Extensive diffuse alveolar infiltrate throughout the right lung field. Opacity left pulmonary base. Moderate cardiac silhouette enlargement. Pulmonary vascular pattern appears normal. Bones appear intact IMPRESSION: Diffuse infiltrates throughout the right lung and left pulmonary base. Cardiac silhouette enlargement. THIS IS AN ELECTRONICALLY VERIFIED FINAL REPORT 11/02/2024 8:14 AM - Electronically signed by Tiffanie Santos MD
[2024-11-02] MEDS ORDERED: PHARMACY CONSULT XX SCH (09:00)
[2024-11-02] MEDS ORDERED: LASIX IVP SCH (09:00)
[2024-11-02] MEDS: LASIX IVP SCH (10:33)
[2024-11-02] MEDS: LOVENOX INJ 40 MG SYR SC SCH (10:34)
[2024-11-02] MEDS: ZOFRAN INJ 4 MG VIAL IVP ONE (10:52)
[2024-11-02 13:14] LABS: ABG BASE EXCESS 6.9 mmol/L (-2.0-2.0); ABG OXYGEN SATURATION 92.0 % (90-100); ABG PH 7.210 (7.35-7.45); ABG PO2 76.0 mmHg (80.0-100.0)
[2024-11-02 13:15] LABS: ABG ALLEN TEST POS; ABG HCO3 38.0 mmol/L (22-26); ABG PCO2 95.0 mmHg (35.0-45.0)
[2024-11-02] MEDS ORDERED: MOBIC TAB 15 MG PO PRN (16:52)
[2024-11-02] MEDS: TYLENOL #3 TAB (W/CODEINE) PO PRN (19:36)
[2024-11-02] MEDS: SNACK - Diabetic Appropriate PO SCH (20:14)
[2024-11-02] MEDS: KLONOPIN TAB 0.5 MG PO SCH (21:05)
[2024-11-02] MEDS: NEURONTIN CAP 400 MG PO SCH (21:05)
[2024-11-02] MEDS: DESYREL PO SCH (21:05)
[2024-11-02] MEDS: NORVASC TAB 10 MG PO SCH (21:08)
[2024-11-02] MEDS ORDERED: NEURONTIN TAB 600 MG PO SCH (22:00)
[2024-11-03 04:52] LABS: MEAN PLATELET VOLUME 9.5 fL (7.4-11.0); RED CELL DISTRIBUTION WIDTH 15.9 % (11.6-16.5)
[2024-11-03 05:08] LABS: COR CA(FOR HYPOALB) 10.4 mg/dL (8.5-10.1); CREATININE 2.65 mg/dL (0.55-1.02); eGFR NON BLACK RACES 19 (>60)
[2024-11-03 05:29] LABS: ABG BASE EXCESS 8.6 mmol/L (-2.0-2.0); ABG OXYGEN SATURATION 93.0 % (90-100); ABG PH 7.250 (7.35-7.45); ABG PO2 79.0 mmHg (80.0-100.0)
[2024-11-03 05:30] LABS: ABG PCO2 89.0 mmHg (35.0-45.0)
[2024-11-03 05:31] LABS: ABG ALLEN TEST POS; ABG HCO3 39.0 mmol/L (22-26)
[2024-11-03] MEDS ORDERED: LASIX PO SCH (09:00)
[2024-11-03] MEDS ORDERED: VANCOMYCIN IV *PREMIX 1.5 G/300 ML BAG 1.5 G/300 ML PIGGYBACK IV SCH (09:00)
[2024-11-03] MEDS ORDERED: LEXAPRO ONE (09:33)
[2024-11-03] MEDS: KLOR-CON 10 MEQ TAB PO SCH (10:21)
[2024-11-03] MEDS: VITAMIN D3 125 mcg (5,000 UNITS) PO SCH (10:21)
[2024-11-03] MEDS: LEXAPRO PO SCH (10:21)
[2024-11-03] MEDS: ALBUMIN HUMAN 25%- 100 ML 100 ML IV SCH (10:22)
[2024-11-03] MEDS: NEURONTIN CAP 100 MG PO SCH (15:04)
[2024-11-03] MEDS: LASIX IVP SCH (15:54)
[2024-11-04 05:22] LABS: ABG BASE EXCESS 9.7 mmol/L (-2.0-2.0); ABG OXYGEN SATURATION 89.0 % (90-100); ABG PH 7.400 (7.35-7.45); ABG PO2 56.0 mmHg (80.0-100.0)
[2024-11-04 05:23] LABS: ABG ALLEN TEST POS; ABG HCO3 36.5 mmol/L (22-26); ABG PCO2 59.0 mmHg (35.0-45.0)
[2024-11-04 05:40] LABS: MEAN PLATELET VOLUME 9.5 fL (7.4-11.0); RED CELL DISTRIBUTION WIDTH 16.0 % (11.6-16.5)
[2024-11-04 05:56] LABS: COR CA(FOR HYPOALB) 10.0 mg/dL (8.5-10.1); COR NA(FOR HYPERGLY) 144.0 mmol/L (136-145); CREATININE 2.85 mg/dL (0.55-1.02); eGFR NON BLACK RACES 18.0 (>60)
[2024-11-04] MEDS ORDERED: CONSULT PHARMACY - POTASSIUM & MAGNESIUM XX SCH (07:00)
[2024-11-04] MEDS: VANCOMYCIN IV *PREMIX 1.25 G/250 ML BAG 1.25 G/250 ML PIGGYBACK IV SCH (07:54)
[2024-11-04] MEDS: LASIX ONE (07:54)
[2024-11-04] MEDS ORDERED: LEXAPRO ONE (09:00)
[2024-11-04] MEDS: COREG TAB 3.125 MG PO SCH (09:04)
[2024-11-04] MEDS: FARXIGA PO SCH (09:04)
[2024-11-04] MEDS: NORVASC TAB 5 MG PO SCH (09:05)
[2024-11-04] MEDS: K-DUR TAB 20 MEQ PO SCH (09:13)
[2024-11-04] MEDS: DALIRESP PO SCH (10:48)
[2024-11-04] MEDS: ZOFRAN TAB 4 MG PO PRN (16:23)
[2024-11-04 19:37] LABS: ABG BASE EXCESS 6.4 mmol/L (-2.0-2.0); ABG OXYGEN SATURATION 89.0 % (90-100); ABG PCO2 88.0 mmHg (35.0-45.0); ABG PH 7.230 (7.35-7.45); ABG PO2 68.0 mmHg (80.0-100.0)
[2024-11-04 19:38] LABS: ABG ALLEN TEST POS; ABG HCO3 36.9 mmol/L (22-26)
[2024-11-04] MEDS: LASIX IVP ONE (20:39)
--- NOTE | 2024-11-05 05:13 | RAD ---
EXAM: CHEST, 1 VIEW HISTORY: HYPOXIA, SHORTNESS OF BREATH, RESPIRATORY DISTRESS; COMPARISON: 11/02/2024 FINDINGS: T he trachea is midline. The cardiac silhouette is mildly enlarged.. Bilateral interstitial edema or infiltrates. Small bilateral pleural effusions.. The bony thorax is unremarkable. IMPRESSION: Mild cardiomegaly Bilateral interstitial edema and/or infiltrates with small bilateral pleural effusions. THIS IS AN ELECTRONICALLY VERIFIED FINAL REPORT 11/05/2024 5:10 AM - Electronically signed by Jose Miguel Starr MD
[2024-11-05 06:00] LABS: MEAN PLATELET VOLUME 9.6 fL (7.4-11.0); RED CELL DISTRIBUTION WIDTH 16.1 % (11.6-16.5)
[2024-11-05 06:11] LABS: COR CA(FOR HYPOALB) 10.2 mg/dL (8.5-10.1); COR NA(FOR HYPERGLY) 145.0 mmol/L (136-145); CREATININE 2.89 mg/dL (0.55-1.02); eGFR NON BLACK RACES 17.0 (>60)
[2024-11-05 07:20] LABS: BASOPHILS % (MANUAL) 0 % (0-1)
[2024-11-05 07:21] LABS: PLATELET MORPHOLOGY COMMENT NORMAL (NORMAL)
[2024-11-05] MEDS ORDERED: LEXAPRO ONE (09:35)
[2024-11-05] MEDS ORDERED: BUTT CREAM (COMPOUND) ONE (16:55)
[2024-11-05] MEDS: BUTT CREAM (COMPOUND) TOP PRN (17:00)
[2024-11-05] MEDS ORDERED: PHENERGAN INJ 25 MG IM ONE (18:11)
[2024-11-05] MEDS: PHENERGAN INJ 25 MG IM ONE (18:15)
[2024-11-06 06:12] LABS: MEAN PLATELET VOLUME 9.6 fL (7.4-11.0); RED CELL DISTRIBUTION WIDTH 15.8 % (11.6-16.5)
[2024-11-06 06:26] LABS: COR CA(FOR HYPOALB) 9.8 mg/dL (8.5-10.1); COR NA(FOR HYPERGLY) 142.0 mmol/L (136-145); CREATININE 2.7 mg/dL (0.55-1.02); eGFR NON BLACK RACES 19.0 (>60)
[2024-11-06] MEDS ORDERED: LEXAPRO ONE (08:21)
[2024-11-06 10:34] LABS: CREATININE 2.55 mg/dL (0.55-1.02)
[2024-11-06] MEDS: PHARMACY COMMENT IV NR (14:18)
[2024-11-07 05:00] LABS: ABG BASE EXCESS 10.3 mmol/L (-2.0-2.0); ABG OXYGEN SATURATION 90.0 % (90-100); ABG PH 7.430 (7.35-7.45); ABG PO2 58.0 mmHg (80.0-100.0)
[2024-11-07 05:02] LABS: ABG PCO2 55.0 mmHg (35.0-45.0)
[2024-11-07 05:03] LABS: ABG ALLEN TEST POS; ABG HCO3 36.5 mmol/L (22-26)
[2024-11-07 05:42] LABS: MEAN PLATELET VOLUME 9.5 fL (7.4-11.0); RED CELL DISTRIBUTION WIDTH 16.0 % (11.6-16.5)
[2024-11-07 05:54] LABS: COR NA(FOR HYPERGLY) 144 mmol/L (136-145); CREATININE 2.60 mg/dL (0.55-1.02); eGFR NON BLACK RACES 20 (>60)
[2024-11-07] MEDS ORDERED: LEXAPRO ONE (08:06)
--- NOTE | 2024-11-07 08:42 | RAD ---
EXAM: AP chest HISTORY: Hypoxia COMPARISON: FINDINGS: Similar cardiomegaly. No change in extent or distribution of bilateral pulmonary infiltrate/edema and probable pleural effusions. IMPRESSION: No change. Stable radiographic findings consistent with pneumonia/CHF. THIS IS AN ELECTRONICALLY VERIFIED FINAL REPORT 11/07/2024 8:39 AM - Electronically signed by Dwayne Johnson MD
[2024-11-07] MEDS: LASIX PO SCH (09:11)
[2024-11-07] MEDS: PREDNISONE TAB 10 MG PO SCH (11:18)
[2024-11-07] MEDS: COREG TAB 3.125 MG PO SCH (21:34)
[2024-11-08 04:04] VITALS: O2SAT 95
[2024-11-08 05:53] LABS: MEAN PLATELET VOLUME 9.6 fL (7.4-11.0); RED CELL DISTRIBUTION WIDTH 16.1 % (11.6-16.5)
[2024-11-08 06:13] LABS: COR CA(FOR HYPOALB) 9.7 mg/dL (8.5-10.1); CREATININE 2.26 mg/dL (0.55-1.02); eGFR NON BLACK RACES 23 (>60)
[2024-11-08] MEDS ORDERED: CONSULT PHARMACY - POTASSIUM & MAGNESIUM XX SCH (07:00)
[2024-11-08] MEDS: LEXAPRO PO SCH (08:32)
[2024-11-08] MEDS: LEXAPRO ONE (08:35)
[2024-11-08] MEDS ORDERED: K-DUR TAB 20 MEQ PO ONE (08:38)
[2024-11-08 09:00] VITALS: BP 161/74; PULSE 64; TEMP 98.1
[2024-11-08 10:22] VITALS: RESP 20
[2024-11-08] MEDS: K-DUR TAB 20 MEQ PO SCH (10:32)
== END 2024-11-08 14:20 | DRG 291 ==
LOC: ER 21:24 → MED/SURG 11-02 01:39
PROVIDERS: ADMIT Internal Medicine; ATTEND Obstetrics & Gynecology Obstetrics
DX: J96.00 Acute respiratory failure, unspecified whether with hypoxia or hypercapnia; F41.8 Other specified anxiety disorders; N18.9 Chronic kidney disease, unspecified; G25.81 Restless legs syndrome; E03.8 Other specified hypothyroidism; E78.5 Hyperlipidemia, unspecified; R94.4 Abnormal results of kidney function studies; K21.9 Gastro-esophageal reflux disease without esophagitis; J90 Pleural effusion, not elsewhere classified; E11.65 Type 2 diabetes mellitus with hyperglycemia; R94.31 Abnormal electrocardiogram [ECG] [EKG]; I50.33 Acute on chronic diastolic (congestive) heart failure; E11.22 Type 2 diabetes mellitus with diabetic chronic kidney disease; J44.9 Chronic obstructive pulmonary disease, unspecified; I13.0 Hypertensive heart and chronic kidney disease with heart failure and stage 1 through stage 4 chronic kidney disease, or unspecified chronic kidney disease; Z66 Do not resuscitate; J18.8 Other pneumonia, unspecified organism; Z03.818 Encounter for observation for suspected exposure to other biological agents ruled out; N17.8 Other acute kidney failure

== ENCOUNTER 2024-11-17 20:01 | Inpatient (IN) ==
--- NOTE | 2024-11-17 20:15 | DR.SOBA ---
HPI Time Seen Time Seen by Provider: 11/17/24 20:14 Complaints Chief Complaint Doctors Comments: Patient with worsening shortness of breath today. Patient has extensive history with COPD, CHF, pneumonia on home O2 currently residing in the senior living. Patient has had recent admissions for breathing problems. Today her oxygen saturation was lower than usual. No fever. No chest pain. PMH PMH Past Medical History: Anxiety, Arthritis, CHF, COPD, Depression, Diabetes, Dyslipidemia, GERD, Hypertension, Hyperthyroidism and Renal Disease Past Surgical History: No Surgical History: Unknown Family History Family Medical History: Diabetes Mellitus, Cancer, [place], Heart Failure and Hypertension Social History Do you use any recreational Drugs:: No ROS Review of Systems Constitutional: No Symptoms Reported Eyes: No Symptoms Reported ENTM: No Symptoms Reported Respiratoy: See HPI, Non-Productive Cough and Short of Breath; negative Wheezing Cardiovascular: No Symptoms Reported Gastrointestinal/Abdominal: No Symptoms Reported Genitourinary: No Symptoms Reported Neurological: No Symptoms Reported Musculoskeletal: No Symptoms Reported Integumentary: No Symptoms Reported Hematologic/Lymphatic: No Symptoms Reported Endocrine: No Symptoms Reported Psychiatric: No Symptoms Reported All Other Systems: Reviewed and Negative PE Vital Signs Vitals: Vital Signs Temperature 99.2 F Pulse Rate 67 Pulse Rate 68 Pulse Rate 69 Pulse Rate 71 Pulse Rate 71 Pulse Rate 76 Pulse Rate 75 Respiratory Rate 31 Respiratory Rate 30 Respiratory Rate 31 Respiratory Rate 38 Respiratory Rate 37 Respiratory Rate 28 Respiratory Rate 35 Blood Pressure 160/68 Blood Pressure 159/68 Blood Pressure 159/68 Blood Pressure 159/68 Blood Pressure 173/70 O2 Sat by Pulse Oximetry 97 O2 Sat by Pulse Oximetry 100 O2 Sat by Pulse Oximetry 83 O2 Sat by Pulse Oximetry 95 O2 Sat by Pulse Oximetry 95 O2 Sat by Pulse Oximetry 99 O2 Sat by Pulse Oximetry 52 General Limitations: No Limitations General Appearance: Alert and In No Apparent Distress Head Head Exam: Normal Inspection Eyes Eye exam: Normal Appearance ENT ENT Exam: Normal Exam Chest Chest Inspection: Normal Inspection Respiratory Respiratory Exam: Respiratory Distress and Other (Respiratory failure. Diminished bilaterally at bases. Coarse bilaterally. No wheezing.) Cardiovascular Cardiovascular Exam: Regular Rate and Normal Rhythm Abdominal Exam Abdominal Exam: Normal Inspection, Normal Bowel Sounds and Soft Extremities Extremities Exam: Normal Inspection Back Back Exam: Normal Inspection Neurologic Neurological Exam: Alert and Oriented X3 Psychiatric Psychiatric Exam: Normal Affect and Normal Mood Skin Skin Exam: Warm, Dry, Intact and Normal Color COURSE Treatment Treatment: Discussed results of workup with patient. Patient agreeable to admission. Patient improved significantly on BiPAP. Antibiotics started. Patient is DNR but agreeable to admission. Consultation Called: 22:15 Consultation Comments: Discussed case with Dr. Keane and he is agreeable to admission. Critical Care Notes Total Time (mins): 42 Critical Diagnosis: COPD exacerbation versus pneumonia versus CHF exacerbation versus renal failure versus pneumothorax Critical Interventions: Time spent in critical care with patient assessing patient clinically and setting up BiPAP. Time also spent ordering workup and reviewing results. BiPAP managed. Time spent with coordinating admission. Patient started on antibiotics for pneumonia. ROR Labs Reviewed Laboratory Results Reviewed?: Yes 11/17/24 20:20 11/17/24 20:20 Laboratory: WBC 11.2 X10^3/uL (3.6-10.0) H 11/17/24 20:20 RBC 3.34 X10^6/uL (3.5-5.4) L 11/17/24 20:20 Hgb 8.5 g/dL (12.0-16.0) L 11/17/24 20:20 Hct 27.3 % (36.0-47.0) L 11/17/24 20:20 MCV 81.8 fL (80.0-100.0) 11/17/24 20:20 MCH 25.6 pg (27.0-34.0) L 11/17/24 20:20 MCHC 31.2 g/dL (33.0-35.0) L 11/17/24 20:20 RDW 16.3 % (11.6-16.5) 11/17/24 20:20 Plt Count 203 X10^3/uL (150.0-450.0) 11/17/24 20:20 MPV 8.7 fL (7.4-11.0) 11/17/24 20:20 Neut % (Auto) 86.7 % (42.0-75.0) H 11/17/24 20:20 Lymph % (Auto) 5.8 % (21.0-51.0) L 11/17/24 20:20 [place] % (Auto) 6.1 % (0.0-13.0) 11/17/24 20:20 Eos % (Auto) 0.5 % (0.9-2.9) L 11/17/24 20:20 Baso % (Auto) 0.9 % (0.2-1.0) 11/17/24 20:20 Neut # (Auto) 9.7 x10^3/uL (2.2-4.8) H 11/17/24 20:20 Lymph # (Auto) 0.7 X10^3/uL (1.3-2.9) L 11/17/24 20:20 [place] # (Auto) 0.7 x10^3/uL (0.3-0.8) 11/17/24 20:20 Eos # (Auto) 0.1 x10^3/uL (0.0-0.2) 11/17/24 20:20 Baso # (Auto) 0.1 X10^3/uL (0.0-0.1) 11/17/24 20:20 Absolute Nucleated RBC 0.0 /100WBC 11/17/24 20:20 Sample Site Lr 11/17/24 20:05 ABG pH 7.310 (7.35-7.45) L 11/17/24 20:05 ABG pCO2 78.0 mmHg (35.0-45.0) H* 11/17/24 20:05 ABG pO2 < 37.0 mmHg (80.0-100.0) L* 11/17/24 20:05 ABG HCO3 39.3 mmol/L (22-26) H* 11/17/24 20:05 ABG O2 Saturation 63.0 % (90-100) L* 11/17/24 20:05 ABG Base Excess 10.1 mmol/L (-2.0-2.0) H 11/17/24 20:05 Escobar Test Pos 11/17/24 20:05 A-a Gradient 123.0 mmHg 11/17/24 20:05 FiO2 36.0 11/17/24 20:05 Blood Gas Comments Bhavesh well sw 11/17/24 20:05 Sodium 143 mmol/L (136-145) 11/17/24 20:20 Corrected Sodium 144 mmol/L (136-145) 11/17/24 20:20 Potassium 4.2 mmol/L (3.5-5.1) 11/17/24 20:20 Chloride 102 mmol/L (98-107) 11/17/24 20:20 Carbon Dioxide 36.7 mmol/L (21-32) H 11/17/24 20:20 BUN 26 mg/dL (7-18) H 11/17/24 20:20 Creatinine 2.64 mg/dL (0.55-1.02) H 11/17/24 20:20 Est GFR (MDRD) Af Amer 23 (>60) L 11/17/24 20:20 Est GFR (MDRD) Non-Af 19 (>60) L 11/17/24 20:20 Glucose 146 mg/dL (65-99) H 11/17/24 20:20 Lactic Acid 0.7 mmol/L (0.4-2.0) 11/17/24 20:45 Calcium 8.8 mg/dL (8.5-10.1) 11/17/24 20:20 Corrected Calcium 9.9 mg/dL (8.5-10.1) 11/17/24 20:20 Magnesium 2.3 mg/dL (2.0-2.9) 11/17/24 20:20 Total Bilirubin 0.30 mg/dL (0.2-1.0) 11/17/24 20:20 AST 12 Units/L (15-37) L 11/17/24 20:20 ALT 14 Units/L (12-78) 11/17/24 20:20 Alkaline Phosphatase 91 Units/L (46-116) 11/17/24 20:20 Creatine Kinase 24 Units/L (26-192) L 11/17/24 20:20 Troponin I High Sens 24.3 ng/L (4.0-60.0) 11/17/24 20:20 B-Natriuretic Peptide 609 pg/mL (0-79) H 11/17/24 20:20 Total Protein 7.0 g/dL (6.4-8.2) 11/17/24 20:20 Albumin 2.6 g/dL (3.4-5.0) L 11/17/24 20:20 Globulin 4.4 g/dL (2.5-4.5) 11/17/24 20:20 Albumin/Globulin Ratio 0.6 Ratio (1.1-2.1) L 11/17/24 20:20 SARS-CoV-2 (PCR) Negative (NEGATIVE) 11/17/24 20:30 Influenza Type A (PCR) Negative (NEGATIVE) 11/17/24 20:30 Influenza Type B (PCR) Negative (NEGATIVE) 11/17/24 20:30 RSV (PCR) Negative (NEGATIVE) 11/17/24 20:30 Other Results Comments: Name: CHELLY AREVALO : 1960 Sex: F Location: ER Order Number(s): [id number] Procedure(s):CHEST CT W/O CON Ordering Physician: Stephan Berger Primary Care: NFD,None Service Date: 11/17/24 Service Time: 2013 EXAM: CHEST CT WITHOUT INTRAVENOUS CONTRAST HISTORY: Shortness of breath. Low O2 saturation. Nausea. TECHNIQUE: Spiral axial CT images are obtained through the chest without the administration of intravenous contrast. Additional sagittal and coronal reformatted images are reconstructed. COMPARISON: None available. FINDINGS: CARDIOVASCULAR: There is severe coronary atherosclerosis (LAD). There is moderate cardiomegaly with four-chamber enlargement. A small pericardial effusion is seen (up to 9.8 mm thick). MEDIASTINUM AND MATTHEW: There is stable asymmetrical enlargement of the left lobe of the thyroid in keeping with a thyroid mass (approximately 9.3 cm CC by 5.4 cm transverse by 5.8 cm AP) with resultant effacement of the trachea with tracheal narrowing (approximately 1 cm transverse by 1.7 cm AP) and tracheal deviation to the patient's right. Axial image 1-16; coronal image 29-37. No suspicious lymphadenopathy, or abnormal fluid collection is seen. LUNG NODULES: No suspicious lung nodules are seen. LUNGS: The pulmonary vascularity and interstitial markings are diffusely prominent (especially in the upper lobes, consistent with mild CHF or volume overload in the appropriate clinical setting. There is asymmetrical prominence of (ground glass) parenchymal infiltrate in the left lung (especially the left upper lobe) which may represent asymmetrical pulmonary edema and/or acute pneumonia in the appropriate clinical setting. There is a moderate to large (partially loculated) right pleural effusion and a small to moderate, partially loculated, left pleural effusion. There is extensive right lower lobe lung parenchymal consolidation (with relative sparing of the superior segment), and air bronchograms; DDx includes consolidative/compressive atelectasis and/are not consolidative pneumonia in the appropriate clinical setting. There is relatively mild subpleural consolidation and an air bronchograms involving the medial, anterior, and posterior aspects of the left lower lobe. CHEST WALL: There are no chest wall lesions seen. The visualized bony structures are within normal limits. No axillary lymphadenopathy is noted. UPPER ABDOMEN: Limited views through the upper abdomen demonstrate no gross acute abnormality. BILIARY SYSTEM: There is cholelithiasis, consistent with sequela of chronic cholecystitis. Consider follow-up evaluation with HIDA scan to rule out cystic duct obstruction and acute cholecystitis as clinically warranted. IMPRESSION: 1. Stable asymmetrical enlargement of the left lobe of the thyroid in keeping with a thyroid mass (approximately 9.3 cm CC by 5.4 cm transverse by 5.8 cm AP) with resultant effacement of the trachea with tracheal narrowing (approximately 1 cm transverse by 1.7 cm AP) and tracheal deviation to the patient's right. Axial image 1-16; coronal image 29-37. 2. Severe coronary atherosclerosis (LAD). 3. Small pericardial effusion is seen (up to 9.8 mm thick). 4. Moderate cardiomegaly and diffusely prominent (especially in the upper lobes, consistent with mild CHF or volume overload in the appropriate clinical setting. 5. Asymmetrical prominence of (ground glass) parenchymal infiltrate in the left lung (especially the left upper lobe) which may represent asymmetrical pulmonary edema and/or acute pneumonia in the appropriate clinical setting. 6. Moderate to large (partially loculated) right pleural effusion and a small to moderate, partially loculated, left pleural effusion (stable appearance). 7. Extensive right lower lobe lung parenchymal consolidation (with relative sparing of the superior segment), and air bronchograms; DDx includes consolidative/compressive atelectasis and/are not consolidative pneumonia in the appropriate clinical setting. 8. Relatively mild subpleural consolidation and an air bronchograms involving the medial, anterior, and posterior aspects of the left lower lobe (significant improvement of aeration of left lower lobe compared with the previous exam). 3. No active TB, lung parenchymal infiltrate, pleural effusion, or pneumothorax seen. THIS IS AN ELECTRONICALLY VERIFIED FINAL REPORT 11/17/2024 9:41 PM - Electronically signed by Elza Boyd MD EKG Rate: 71 [place]: Normal Rhythm: NSR ST: Normal Opioid Opioid Risk Tool Age (Jovanni box if 16-45): No History of Preadolescent Sexual Abuse: No Total: 0 Total Score Risk Category: Low Risk Copyright: [facility] predicting aberrant behaviors Discharge Plan Diagnosis Discharge Problem: Bilateral pneumonia, Acute on chronic diastolic CHF (congestive heart failure), Respiratory failure COPD (chronic obstructive pulmonary disease) Qualifiers: COPD type: unspecified COPD Qualified Code(s): J44.9 - Chronic obstructive pulmonary disease, unspecified Type 2 diabetes mellitus Qualifiers: Diabetes mellitus intermodal owner operator truck driver insulin use: unspecified skilled nursing insulin use status Diabetes mellitus complication status: with other specified complication Qualified Code(s): E11.69 - Type 2 diabetes mellitus with other specified complication Discharge Plan Patient Disposition: ADMITTED INPATIENT Condition: Stable Prescriptions: No Action acetaminophen-codeine 300-30 mg Tablet 1 tab PO Q6H PRN amlodipine 10 mg Tablet 10 mg PO DAILY gabapentin 800 mg Tablet 1,600 mg PO TID ondansetron HCl 8 mg tablet 8 mg PO Q12H PRN (Reason: Nausea And Vomiting) clonazepam 0.5 mg tablet 0.5 mg PO QHS potassium chloride 10 mEq Tablet Extended Release 10 meq PO QDAY cholecalciferol (vitamin D3) 125 mcg (5,000 unit) Tablet 125 mcg PO QDAY pantoprazole 40 mg tablet,delayed release (DR/EC) 40 mg PO QDAY escitalopram oxalate 10 mg Tablet 20 mg PO DAILY Qty: 30 6RF roflumilast 500 mcg Tablet 500 mcg PO DAILY Qty: 30 6RF Trelegy Ellipta 100-62.5-25 mcg blister with device 1 inh inhalation Q24H Qty: 60 6RF furosemide 40 mg tablet 20 mg PO QAM Qty: 30 0RF trazodone 100 mg tablet 100 mg PO QHS amlodipine 10 mg Tablet 10 mg PO QDAY Health Concerns: Post Hospitalization: new medications and changes needed to prevent readmission or further decline. Pt educated and given instructions on all concerns. Plan of Treatment: Continue with present treatment and follow up plan. Pt is to keep follow up appointment as instructed and take medications as ordered. Orders to Discharge Patient Discharge Orders: Transfer (Routine); Ordered 11/17/24 Ordered By: Stephan Berger Follow ups/Referrals Follow ups/Referrals: NFD,None [Primary Care Provider] - 3 days Instructions Stand Alone Forms: Find Help Web Site, Post Hospital Follow Up Care Print Language: JORDANIAN
[2024-11-17 20:21] LABS: ABG BASE EXCESS 10.1 mmol/L (-2.0-2.0); ABG PH 7.310 (7.35-7.45)
[2024-11-17 20:22] LABS: ABG PCO2 78.0 mmHg (35.0-45.0)
[2024-11-17 20:23] LABS: ABG HCO3 39.3 mmol/L (22-26); ABG PO2 < 37.0 mmHg (80.0-100.0)
[2024-11-17 20:24] LABS: ABG ALLEN TEST POS; ABG OXYGEN SATURATION 63.0 % (90-100)
[2024-11-17 20:29] VITALS: BMI 41.4
[2024-11-17 20:36] LABS: MEAN PLATELET VOLUME 8.7 fL (7.4-11.0); RED CELL DISTRIBUTION WIDTH 16.3 % (11.6-16.5)
--- NOTE | 2024-11-17 20:40 | EKG ---
Test Reason : sob Blood Pressure : */* mmHG Vent. Rate : 71 BPM Atrial Rate : 71 BPM P-R Int : 158 ms QRS Dur : 82 ms QT Int : 368 ms P-R-T Axes : 76 81 66 degrees QTc Int : 399 ms Normal sinus rhythm Cannot rule out Anterior infarct (cited on or before 01-NOV-2024) Abnormal ECG When compared with ECG of 01-NOV-2024 21:46, Questionable change in QRS axis Confirmed by Ed Quinn MD ([id number]) on 11/18/2024 7:17:11 AM Referred By: Confirmed By: Ed Quinn MD
[2024-11-17 20:47] LABS: COR CA(FOR HYPOALB) 9.9 mg/dL (8.5-10.1); COR NA(FOR HYPERGLY) 144.0 mmol/L (136-145); CREATININE 2.64 mg/dL (0.55-1.02); eGFR NON BLACK RACES 19.0 (>60)
[2024-11-17] MEDS: OFIRMEV IV 1000 MG VIAL 1,000 MG/100 ML VIAL IV PRN (21:18)
[2024-11-17] MEDS: ZOFRAN INJ 4 MG VIAL IVP ONE (21:19)
--- NOTE | 2024-11-17 21:44 | CT ---
EXAM: CHEST CT WITHOUT INTRAVENOUS CONTRAST HISTORY: Shortness of breath. Low O2 saturation. Nausea. TECHNIQUE: Spiral axial CT images are obtained through the chest without the administration of intravenous contrast. Additional sagittal and coronal reformatted images are reconstructed. COMPARISON: None available. FINDINGS: CARDIOVASCULAR: There is severe coronary atherosclerosis (LAD). There is moderate cardiomegaly with four-chamber enlargement. A small pericardial effusion is seen (up to 9.8 mm thick). MEDIASTINUM AND MATTHEW: There is stable asymmetrical enlargement of the left lobe of the thyroid in keeping with a thyroid mass (approximately 9.3 cm CC by 5.4 cm transverse by 5.8 cm AP) with resultant effacement of the trachea with tracheal narrowing (approximately 1 cm transverse by 1.7 cm AP) and tracheal deviation to the patient's right. Axial image 1-16; coronal image 29-37. No suspicious lymphadenopathy, or abnormal fluid collection is seen. LUNG NODULES: No suspicious lung nodules are seen. LUNGS: The pulmonary vascularity and interstitial markings are diffusely prominent (especially in the upper lobes, consistent with mild CHF or volume overload in the appropriate clinical setting. There is asymmetrical prominence of (ground glass) parenchymal infiltrate in the left lung (especially the left upper lobe) which may represent asymmetrical pulmonary edema and/or acute pneumonia in the appropriate clinical setting. There is a moderate to large (partially loculated) right pleural effusion and a small to moderate, partially loculated, left pleural effusion. There is extensive right lower lobe lung parenchymal consolidation (with relative sparing of the superior segment), and air bronchograms; DDx includes consolidative/compressive atelectasis and/are not consolidative pneumonia in the appropriate clinical setting. There is relatively mild subpleural consolidation and an air bronchograms involving the medial, anterior, and posterior aspects of the left lower lobe. CHEST WALL: There are no chest wall lesions seen. The visualized bony structures are within normal limits. No axillary lymphadenopathy is noted. UPPER ABDOMEN: Limited views through the upper abdomen demonstrate no gross acute abnormality. BILIARY SYSTEM: There is cholelithiasis, consistent with sequela of chronic cholecystitis. Consider follow-up evaluation with HIDA scan to rule out cystic duct obstruction and acute cholecystitis as clinically warranted. IMPRESSION: 1. Stable asymmetrical enlargement of the left lobe of the thyroid in keeping with a thyroid mass (approximately 9.3 cm CC by 5.4 cm transverse by 5.8 cm AP) with resultant effacement of the trachea with tracheal narrowing (approximately 1 cm transverse by 1.7 cm AP) and tracheal deviation to the patient's right. Axial image 1-16; coronal image 29-37. 2. Severe coronary atherosclerosis (LAD). 3. Small pericardial effusion is seen (up to 9.8 mm thick). 4. Moderate cardiomegaly and diffusely prominent (especially in the upper lobes, consistent with mild CHF or volume overload in the appropriate clinical setting. 5. Asymmetrical prominence of (ground glass) parenchymal infiltrate in the left lung (especially the left upper lobe) which may represent asymmetrical pulmonary edema and/or acute pneumonia in the appropriate clinical setting. 6. Moderate to large (partially loculated) right pleural effusion and a small to moderate, partially loculated, left pleural effusion (stable appearance). 7. Extensive right lower lobe lung parenchymal consolidation (with relative sparing of the superior segment), and air bronchograms; DDx includes consolidative/compressive atelectasis and/are not consolidative pneumonia in the appropriate clinical setting. 8. Relatively mild subpleural consolidation and an air bronchograms involving the medial, anterior, and posterior aspects of the left lower lobe (significant improvement of aeration of left lower lobe compared with the previous exam). 3. No active TB, lung parenchymal infiltrate, pleural effusion, or pneumothorax seen. THIS IS AN ELECTRONICALLY VERIFIED FINAL REPORT 11/17/2024 9:41 PM - Electronically signed by Elza Boyd MD
[2024-11-17 22:24] LABS: ABG BASE EXCESS 11.3 mmol/L (-2.0-2.0); ABG HCO3 40.8 mmol/L (22-26); ABG OXYGEN SATURATION 89.0 % (90-100); ABG PCO2 81.0 mmHg (35.0-45.0); ABG PH 7.310 (7.35-7.45); ABG PO2 61.0 mmHg (80.0-100.0)
[2024-11-17 22:25] LABS: ABG ALLEN TEST POS
[2024-11-17] MEDS ORDERED: NORCO 5/325 MG TAB PO PRN (22:41)
[2024-11-17] MEDS ORDERED: PATIENT'S HOME MEDICATION (Ondansetron Hcl 8 mg tablet) PO PRN (22:41)
[2024-11-17] MEDS: NS 250 ML IV 25 ML IV PRN (23:01)
[2024-11-17] MEDS: ZOSYN VIAL 3.375 GRAMS 3.375 G in NS 100 ML IV 100 ML IV SCH (23:02)
[2024-11-17] MEDS: NS 1,000 ML IV 1,000 ML IV SCH (23:02)
[2024-11-18] MEDS ORDERED: ZOFRAN INJ 4 MG VIAL ONE (04:19)
[2024-11-18] MEDS ORDERED: ZOFRAN TAB 4 MG PO PRN (05:31)
[2024-11-18] MEDS: ZOFRAN INJ 4 MG VIAL IVP PRN (05:35)
[2024-11-18] MEDS: TYLENOL 325 MG TAB PO PRN (05:47)
[2024-11-18 05:51] LABS: COR CA(FOR HYPOALB) 10.3 mg/dL (8.5-10.1); CREATININE 2.44 mg/dL (0.55-1.02); eGFR NON BLACK RACES 21 (>60)
--- NOTE | 2024-11-18 06:08 | RAD ---
EXAM: CHEST, 1 VIEW HISTORY: PNEUMONIA ; HTN, DM, RENAL DISEASE, COPD, GERD, CHF COMPARISON: 11/07/2024 FINDINGS: The trachea is midline. The cardiac silhouette is mildly enlarged. Mild pulmonary vascular congestion with early interstitial edema consistent with congestive failure. Small bilateral pleural effusions.. The lungs are clear without focal infiltrate or effusion. The bony thorax is unremarkable. IMPRESSION: Mild cardiomegaly with mild congestive failure. THIS IS AN ELECTRONICALLY VERIFIED FINAL REPORT 11/18/2024 6:05 AM - Electronically signed by Jose Miguel Starr MD
[2024-11-18 06:21] LABS: MEAN PLATELET VOLUME 9.2 fL (7.4-11.0); RED CELL DISTRIBUTION WIDTH 16.4 % (11.6-16.5)
[2024-11-18] MEDS: ZOFRAN INJ 4 MG VIAL ONE (07:10)
[2024-11-18] MEDS: CONSULT PHARMACY - POTASSIUM & MAGNESIUM XX SCH (07:10)
[2024-11-18] MEDS: OFIRMEV IV 1000 MG VIAL 1,000 MG/100 ML VIAL IV ONE (07:10)
[2024-11-18] MEDS: DUONEB 0.5 MG/3 MG (3 mL) NEB SCH (08:05)
[2024-11-18] MEDS: PULMICORT NEB TX 0.5 MG NEB SCH (08:05)
[2024-11-18] MEDS ORDERED: LEXAPRO ONE (08:27)
[2024-11-18] MEDS: LEXAPRO PO SCH (08:37)
[2024-11-18] MEDS: DALIRESP PO SCH (08:37)
[2024-11-18] MEDS: KLOR-CON 10 MEQ TAB PO SCH (08:37)
[2024-11-18] MEDS: PROTONIX TAB 40 MG PO SCH (08:37)
[2024-11-18] MEDS: LASIX PO SCH (08:37)
[2024-11-18] MEDS: NORVASC TAB 10 MG PO SCH (08:37)
[2024-11-18] MEDS ORDERED: PATIENT'S HOME MEDICATION (Fluticasone-Umeclidin-Vilanter [Trelegy Ellipta] 100-62.5-25 mc IN SCH (09:00)
[2024-11-18] MEDS ORDERED: PHARMACY CONSULT LTC MEDICATIONS XX SCH (10:00)
[2024-11-18] MEDS: ALBUMIN HUMAN 25%- 100 ML 100 ML IV SCH (10:43)
[2024-11-18] MEDS: LASIX IVP SCH (10:43)
[2024-11-18] MEDS: COREG TAB 6.25 MG PO SCH (10:43)
[2024-11-18] MEDS: XOPENEX 1.25 MG/3 ML NEBULE NEB SCH (13:19)
[2024-11-18] MEDS: VISBIOME PROBIOTIC CAP 112.5 B or equivalent PO SCH (15:18)
[2024-11-18] MEDS: ULTRAM PO PRN (21:18)
[2024-11-19 05:52] LABS: MEAN PLATELET VOLUME 10.2 fL (7.4-11.0); RED CELL DISTRIBUTION WIDTH 16.3 % (11.6-16.5)
[2024-11-19 06:11] LABS: COR CA(FOR HYPOALB) 10.1 mg/dL (8.5-10.1); CREATININE 2.62 mg/dL (0.55-1.02); eGFR NON BLACK RACES 19 (>60)
[2024-11-19] MEDS: LEXAPRO ONE (08:20)
[2024-11-19 08:30] LABS: RETICULOCYTE % 0.74 % (0.8-2.2)
[2024-11-19] MEDS ORDERED: NORVASC TAB 10 MG PO SCH (09:00)
[2024-11-19] MEDS: LASIX IVP SCH (09:42)
[2024-11-19 09:44] LABS: ABG BASE EXCESS 9.3 mmol/L (-2.0-2.0); ABG OXYGEN SATURATION 87.0 % (90-100); ABG PH 7.390 (7.35-7.45); ABG PO2 53.0 mmHg (80.0-100.0)
[2024-11-19 09:45] LABS: ABG ALLEN TEST POS; ABG HCO3 36.3 mmol/L (22-26); ABG PCO2 60.0 mmHg (35.0-45.0)
[2024-11-19] MEDS: VISTARIL PO PRN (12:19)
[2024-11-19] MEDS: NS 250 ML IV 250 ML IV ONE ×2 (13:06→18:33)
[2024-11-19] MEDS: LASIX IVP PRN (15:49)
[2024-11-19] MEDS: NS 100 ML IV 100 ML with VENOFER 400 MG IV ONE (22:48)
[2024-11-20 06:04] LABS: MEAN PLATELET VOLUME 10.5 fL (7.4-11.0); RED CELL DISTRIBUTION WIDTH 15.7 % (11.6-16.5)
[2024-11-20 06:19] LABS: COR CA(FOR HYPOALB) 10.0 mg/dL (8.5-10.1); CREATININE 2.55 mg/dL (0.55-1.02); eGFR NON BLACK RACES 20 (>60)
[2024-11-20] MEDS ORDERED: CONSULT PHARMACY - POTASSIUM & MAGNESIUM XX SCH ×2 (07:00→08:00)
[2024-11-20] MEDS: LEXAPRO ONE (08:24)
[2024-11-20] MEDS: K-DUR TAB 20 MEQ PO SCH (09:16)
[2024-11-20] MEDS: MAG-OX TAB PO SCH (09:16)
[2024-11-20] MEDS: MAGNESIUM SULFATE 1 GRAM/100 mL PREMIX 1 G/100 ML BAG IV SCH (11:05)
[2024-11-20] MEDS: ZINC SULFATE PO SCH (12:16)
--- NOTE | 2024-11-20 13:03 | RAD ---
EXAM: ACUTE ABDOMEN SERI ES HISTORY: loose stools, pleural effusion; . COMPARISON: None. TECHNIQUE: Upright and supine views of the abdomen, as well as frontal view of the chest, were submitted for interpretation. FINDINGS: The cardiomediastinal silhouette is within normal limits. Lungs show likely pulmonary edema. More focal consolidation in the left lower lobe. Bowel gas pattern is non-obstructive. No free gas is seen. No definite radio-opaque calculi are visualized over the kidneys or expected course of the ureters. Bones appear within normal limits. IMPRESSION: Cardiomegaly with pulmonary edema. More focal lung consolidation in the left lower lobe could be related to pneumonia. Nonobstructive bowel gas pattern THIS IS AN ELECTRONICALLY VERIFIED FINAL REPORT 11/20/2024 1:00 PM - Electronically signed by Iban Buckley MD
[2024-11-20] MEDS: PHENERGAN INJ 25 MG IM PRN (13:34)
[2024-11-20] MEDS ORDERED: COREG TAB 6.25 MG ONE (19:08)
[2024-11-20] MEDS: COREG TAB 6.25 MG PO SCH (21:02)
[2024-11-21 05:05] LABS: MEAN PLATELET VOLUME 10.2 fL (7.4-11.0); RED CELL DISTRIBUTION WIDTH 16.1 % (11.6-16.5)
[2024-11-21 05:14] LABS: COR CA(FOR HYPOALB) 10.1 mg/dL (8.5-10.1); CREATININE 2.26 mg/dL (0.55-1.02); eGFR NON BLACK RACES 23 (>60)
[2024-11-21] MEDS ORDERED: CONSULT PHARMACY - POTASSIUM & MAGNESIUM XX SCH (06:00)
[2024-11-21] MEDS: LEXAPRO ONE (08:02)
[2024-11-21] MEDS: K-DUR TAB 20 MEQ PO SCH (09:09)
[2024-11-21] MEDS: NS 100 ML IV 100 ML with VENOFER 400 MG IV ONE (10:28)
[2024-11-21] MEDS: PROCRIT or EPOGEN VIAL 10,000 UNITS SC ONE (10:31)
--- NOTE | 2024-11-21 12:37 | RAD ---
EXAM: ACUTE ABDOMEN SERI ES HISTORY: LOOSE STOOLS, PLEURAL EFFUSION; COMPARISON: 11/20/2024 TECHNIQUE: One view of the chest and four views of the abdomen obtained. FINDINGS: Heart size is within the normal range. There is slight decrease in pulmonary edema. There is an alveolar infiltrate within the left lower lobe which may represent superimposed pneumonia. Small bilateral effusions. No pneumothorax. Hilar and mediastinal structures and bony structures unchanged. There is a nonobstructive bowel gas pattern. No free air, dilated loops or significant air-fluid levels. There is a mild ileus noted. No abnormal calcifications in the distribution of the kidneys or ureters. There is previous spine surgery at L4-5. Enthesopathy along the iliac wings. Mild osteoarthritic changes in the hips. IMPRESSION: Slight decrease in pulmonary edema. Superimposed alveolar infiltrate in the left lower lobe is unchanged and may represent pneumonia. Small bilateral effusions. Nonobstructive bowel gas pattern. Ileus. No free air THIS IS AN ELECTRONICALLY VERIFIED FINAL REPORT 11/21/2024 12:33 PM - Electronically signed by Sam Aparicio MD
[2024-11-22 05:34] LABS: MEAN PLATELET VOLUME 9.6 fL (7.4-11.0); RED CELL DISTRIBUTION WIDTH 15.8 % (11.6-16.5)
[2024-11-22 05:45] LABS: COR CA(FOR HYPOALB) 10.1 mg/dL (8.5-10.1); CREATININE 2.05 mg/dL (0.55-1.02); eGFR NON BLACK RACES 26 (>60)
[2024-11-22] MEDS ORDERED: CONSULT PHARMACY - POTASSIUM & MAGNESIUM XX SCH ×2 (07:00→10:00)
[2024-11-22 09:05] VITALS: O2SAT 90
[2024-11-22] MEDS: LEXAPRO ONE (09:24)
[2024-11-22] MEDS: KLOR-CON 10 MEQ TAB PO SCH (10:04)
[2024-11-22] MEDS: COLACE CAP 100 MG PO ONE (10:04)
[2024-11-22] MEDS: MAG-OX TAB PO SCH (10:04)
[2024-11-22] MEDS: NEURONTIN CAP 300 MG PO SCH (10:04)
[2024-11-22] MEDS: MICARDIS PO SCH (10:04)
[2024-11-22 12:37] VITALS: PULSE 76; RESP 20; TEMP 98
[2024-11-22] MEDS: MICARDIS PO ONE (12:57)
[2024-11-22] MEDS: LINZESS PO SCH (12:59)
[2024-11-22 14:44] VITALS: BP 158/50
[2024-11-23] MEDS ORDERED: MICARDIS PO SCH (09:00)
[2024-11-23] MEDS ORDERED: LINZESS PO SCH (09:00)
== END 2024-11-22 15:10 | DRG 189 ==
LOC: ER 20:01 → U 22:08
PROVIDERS: ADMIT Obstetrics & Gynecology Obstetrics; ATTEND Obstetrics & Gynecology Obstetrics
DX: L89.319 Pressure ulcer of right buttock, unspecified stage; J18.8 Other pneumonia, unspecified organism; R94.4 Abnormal results of kidney function studies; Z66 Do not resuscitate; I50.33 Acute on chronic diastolic (congestive) heart failure; J96.22 Acute and chronic respiratory failure with hypercapnia; K92.1 Melena; Z99.81 Dependence on supplemental oxygen; K21.9 Gastro-esophageal reflux disease without esophagitis; M19.90 Unspecified osteoarthritis, unspecified site; K76.0 Fatty (change of) liver, not elsewhere classified; F41.8 Other specified anxiety disorders; J44.9 Chronic obstructive pulmonary disease, unspecified; R94.31 Abnormal electrocardiogram [ECG] [EKG]; E78.5 Hyperlipidemia, unspecified; E66.2 Morbid (severe) obesity with alveolar hypoventilation; Z79.4 Long term (current) use of insulin; E11.65 Type 2 diabetes mellitus with hyperglycemia; Z03.818 Encounter for observation for suspected exposure to other biological agents ruled out; D64.89 Other specified anemias; Z68.39 Body mass index [BMI] 39.0-39.9, adult; F32.89 Other specified depressive episodes; I11.0 Hypertensive heart disease with heart failure